=== PATIENT | male | born 1940 | race Caucasian/White ===

== ENCOUNTER 2016-12-15 05:42 | Day surgery (SDC) | payer MEDICARE ==
[2016-12-11 13:23] VITALS: BMI 29.9
[2016-12-15] MEDS ORDERED: SODIUM CHLORIDE 0.9% 1,000 ML in EMPTY BAG 1 BAG IV ONE (06:00)
[2016-12-15] MEDS ORDERED: ASPIRIN 325 MG TAB PO ONE (06:00)
[2016-12-15] MEDS ORDERED: ALPRAZolam 0.25 MG TAB PO PRN (06:00)
[2016-12-15 06:35] VITALS: RESP 16; TEMP 98
[2016-12-15] MEDS ORDERED: VERAPAMIL 2.5 MG/ML 2 ML AMP ONE ×2 (07:11→07:15)
[2016-12-15] MEDS ORDERED: LIDOCAINE 2% INJ 20 MG/ML (20 ML MDV) ONE (07:11)
[2016-12-15] MEDS ORDERED: HEPARIN SODIUM 1,000 UN/ML (10ML VL) ONE (07:11)
[2016-12-15] MEDS ORDERED: diphenhydrAMINE 50 MG/ML 1 ML VIAL ONE (07:11)
[2016-12-15] MEDS ORDERED: fentaNYL (PF) 50 MCG/ML 2 ML AMP ONE (07:11)
[2016-12-15] MEDS ORDERED: diphenhydrAMINE 50 MG/ML 1 ML VIAL IVP ONE (07:35)
[2016-12-15] MEDS ORDERED: fentaNYL (PF) 50 MCG/ML 2 ML AMP IVP ONE (07:35)
[2016-12-15] MEDS ORDERED: LIDOCAINE 2% INJ 20 MG/ML SQ ONE (07:37)
[2016-12-15] MEDS ORDERED: VERAPAMIL SYRINGE (5 MG/10 ML) INTRAARTER ONE (07:38)
[2016-12-15] MEDS ORDERED: HEPARIN SODIUM 1,000 UN/ML (10ML VL) IV ONE (07:45)
[2016-12-15] MEDS ORDERED: IOHEXOL 350 MG/ML 125ML BOTTLE INJ ONE (07:55)
[2016-12-15] MEDS ORDERED: RX INFO: IV CONTRAST WAS GIVEN 1 EACH MISC MISCELLANE PRN (08:10)
[2016-12-15] MEDS ORDERED: PANTOPRAZOLE 40 MG TABLET PO PRN (08:11)
[2016-12-15] MEDS ORDERED: FAMOTIDINE 20 MG TAB PO PRN (08:11)
[2016-12-15] MEDS ORDERED: SODIUM CHLORIDE 0.9% 1,000 ML IV SCH (08:15)
[2016-12-15] MEDS ORDERED: ASPIRIN 81 MG CHEW PO SCH (09:00)
[2016-12-15] MEDS ORDERED: MULTIVITAMINS, THERA 1 EACH TAB PO SCH (09:00)
[2016-12-15] MEDS ORDERED: ISOSORBIDE MONONITRATE ER 30 MG TAB.ER.24H PO SCH (09:00)
[2016-12-15 12:19] VITALS: BP 135/65; PULSE 58
[2016-12-15] MEDS ORDERED: TAMSULOSIN 0.4 MG CAP.ER.24H PO SCH (21:00)
--- NOTE | 2016-12-16 10:24 | CC ---
Mr. Long is a 76-year-old male who presented with symptoms of exertional chest discomfort and dyspnea on exertion. In view of that, recommendations was made regarding cardiac catheterization. The procedure as well as the risks and the complications were discussed with the patient who is in full understanding and agreement. PROCEDURE: The patient was brought to [facility] in the fasting semi-sedated state after receiving fentanyl and Benadryl and achieving moderate conscious sedated state using Xylocaine anesthesia under sterile technique. A 6-Persian sheath was introduced in the right radial artery. Selective right and left coronary angiography performed using 5 Persian 3-1/2 Bend right and left Flash catheter. Multiple view of the coronary arteries including hemiaxial views were obtained. Following that, a 5 Persian tight pigtail catheter was introduced into the left ventricle and a 30-degree VILLASENOR view of the left ventricle was obtained. Following that, catheter and sheath were removed. Hemostasis was obtained with deployment of TR band. There was no immediate complication. The patient was returned to his room in stable condition. Of note, the patient received 4500 units of intravenous heparin as well as intraarterial verapamil. FINDINGS: LEFT MAIN: This is a large size vessel giving rise to an LAD. The left main coronary artery has a 10% plaque distally without any evidence of high grade stenosis. LEFT ANTERIOR DESCENDING ARTERY: This is a large size vessel giving rise to a large first diagonal branch or ramus intermedius. The second diagonal branch is large in caliber after the takeoff of the second diagonal branch, there is a intimal plaque of about 40% with mild calcification. The rest of the vessel has no high grade stenosis. 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 The left circumflex as well as its branches have no evidence of high grade stenosis. RIGHT CORONARY ARTERY: This is a large dominant vessel bifurcating distally to PDA and posterolateral segment and branches. The right coronary artery as well as branches have no evidence of obstructive coronary artery disease. LEFT VENTRICULOGRAM: The left ventriculogram was performed in 30-degree VILLASENOR view and revealed normal left ventricular size and systolic function. Ejection fracture is 60%. HEMODYNAMICS: There was no gradient across the aortic valve. The left ventricular end-diastolic pressure is 18 to 20 mmHg. CONCLUSION: 1. Mild disease in the distal left main as well as the mid left anterior descending artery. 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 3. Normal left ventricular size and systolic function. RECOMMENDATIONS: In view of finding anatomy I would recommend to continue medical therapy with aggressive coronary risk modification has been initiated. Those findings and recommendations were discussed with the patient and his family and in full understanding and agreement. Duration of the procedure is 21 minutes. MTDD
--- NOTE | 2016-12-16 10:29 | MISC ---
December 15, 2016 RASHAD CHONG MD RE: Jayden Mercedes Dear Dr. Chong: I had the opportunity to perform cardiac catheterization on Mr. Long at [facility] on the 15 of December and a full copy of the procedure note will be forwarded to you. 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 Based on those findings, I would continue medical therapy and depending on his progress further recommendations will be made. Please feel free to call me for any questions. Sincerely yours, JAMES WALKER MD [facility]
== END 2016-12-15 13:05 | disposition home or self-care (01) ==
LOC: CATHCVL 05:42
PROVIDERS: ATTEND Internal Medicine Interventional Cardiology
DX: I25.118 Atherosclerotic heart disease of native coronary artery with other forms of angina pectoris (principal); Z79.82 Long term (current) use of aspirin; Z79.899 Other long term (current) drug therapy; Z87.891 Personal history of nicotine dependence
CPT/HCPCS: 93458; 99152; C1894; C1769; J2001; J1200; J3010; J1644; Q9967

== ENCOUNTER → 2017-03-09 | Outpatient (CLI) | payer MEDICARE ==
--- NOTE | 2017-03-09 16:31 | MR ---
EXAMINATION TYPE: MR lumbar spine wo con DATE OF EXAM: 03/09/2017 4:07 PM COMPARISON: NONE HISTORY: LBP x several years, no trauma/surgery Multiplanar, MultiSpin echo imaging of the lumbar spine was performed. L1-L2: Moderate disc desiccation. Circumferential disc bulge. Effacement ventral thecal sac without h erniation, protrusion or central stenosis. Facet joint arthropathy without foraminal encroachment. Ve ntral spondylosis. L2-L3: Moderate disc desiccation. Circumferential disc bulge. Effacement ventral thecal sac without h erniation, protrusion or central stenosis. Facet joint arthropathy without foraminal encroachment. Ve ntral spondylosis. L3-L4: Moderate disc desiccation. Circumferential disc bulge. Effacement ventral thecal sac without h erniation, protrusion or central stenosis. Facet joint arthropathy without foraminal encroachment. Ve ntral spondylosis. L4-L5: Moderate disc desiccation. Circumferential disc bulge. Effacement ventral thecal sac without h erniation, protrusion or central stenosis. Facet joint arthropathy without foraminal encroachment. Ve ntral spondylosis. L5-S1: Moderate disc desiccation. Circumferential disc bulge. Effacement ventral thecal sac without h erniation, protrusion or central stenosis. Facet joint arthropathy without foraminal encroachment. Ve ntral spondylosis. Lumbar segments are intact. No paraspinal masses are identified. Conus medullaris has a normal appe arance. IMPRESSION: 1. Multilevel degenerative disc disease with disc bulging.
== END | disposition home or self-care (01) ==
LOC: RADMRIMAIN 15:14
PROVIDERS: ATTEND Internal Medicine
DX: M51.26 Other intervertebral disc displacement, lumbar region (principal); M51.36 Other intervertebral disc degeneration, lumbar region
CPT/HCPCS: 72148

== ENCOUNTER 2017-04-26 14:35 | Inpatient (IN) | payer MEDICARE ==
[2017-04-26] MEDS ORDERED: ONDANSETRON 4 MG/2 ML VIAL IVP STA (16:00)
--- NOTE | 2017-04-26 16:14 | ED ---
General Adult HPI <Garrett Ruelas - Last Filed: 04/26/17 18:31> - General Source: patient, RN notes reviewed Mode of arrival: ambulatory Limitations: no limitations <Luis Armando Kate - Last Filed: 04/26/17 18:45> - General Chief complaint: Abdominal Pain Stated complaint: GALLBLADDER PROBLEM Time Seen by Provider: 04/26/17 15:55 - History of Present Illness Initial comments: Patient 76-year-old male who presents emergency room today with a chief complaint of abdominal pain off and on over the last 4 days. Patient does admit that he believes it might be his gallbladder. He states that he noticed few days ago. He states Sunday he did not eat anything. He states today he had a sour the pain came back. He describes as a burning type pain in the right upper quadrant. He states he has calmed down at this point currently rates a 4/10. Denies any radiation. States feeling nauseated. Denies any other complaints. Patient denies any recent fever, chills, shortness of breath, chest pain, back pain, vomiting, numbness or tingling, dysuria or hematuria, constipation or diarrhea, headaches or visual changes, or any other complaints. (Luis Armando Kate) - Related Data Home Medications Medication Instructions Recorded Confirmed Aspirin 81 mg PO DAILY 12/11/16 04/26/17 Multivitamins, Thera [Multivitamin 1 tab PO DAILY 12/11/16 04/26/17 (formulary)] Tamsulosin [Flomax] 0.4 mg PO DAILY 12/11/16 04/26/17 Atorvastatin [Lipitor] 20 mg PO DAILY 04/26/17 04/26/17 Fluticasone Nasal [place] [Flonase 2 spr EA NOSTRIL DAILY 04/26/17 04/26/17 Nasal [place]] Allergies Allergy/AdvReac Type Severity Reaction Status Date / Time No Known Allergies Allergy Verified 04/26/17 16:05 Review of Systems ROS Other: All systems not noted in ROS Statement are negative. <Garrett Ruelas - Last Filed: 04/26/17 18:31> ROS Other: All systems not noted in ROS Statement are negative. <Luis Armando Kate - Last Filed: 04/26/17 18:45> ROS Statement: Those systems with pertinent positive or pertinent negative responses have been documented in the HPI. Past Medical History Past Medical History: GERD/Reflux, Prostate Disorder Additional Past Medical History / Comment(s): ,hiatal hernia,enlarged prostate, kidney stone History of Any Multi-Drug Resistant Organisms: None Reported Past Surgical History: Hernia Repair, Tonsillectomy Additional Past Surgical History / Comment(s): vasectomy, incised growth in throat Past Anesthesia/Blood Transfusion Reactions: No Reported Reaction Additional Past Anesthesia/Blood Transfusion Reaction / Comment(s): no hx blood transfusion Past Psychological History: No Psychological Hx Reported Smoking Status: Former smoker Past Alcohol Use History: None Reported Past Drug Use History: None Reported - Past Family History Mother Family Medical History: No Reported History Father Family Medical History: No Reported History <Luis Armando Kate - Last Filed: 04/26/17 18:45> General Exam <Garrett Ruelas - Last Filed: 04/26/17 18:31> Limitations: no limitations <Luis Armando Kate - Last Filed: 04/26/17 18:45> - General Exam Comments Initial Comments: General: The patient is awake and alert, in no distress, and does not appear acutely ill. Eye: Pupils are equal, round and reactive to light, extra-ocular movements are intact. No nystagmus. There is normal conjunctiva bilaterally. No signs of icterus. Ears, nose, mouth and throat: There are moist mucous membranes and no oral lesions. Neck: The neck is supple, there is no tenderness or JVD. Cardiovascular: There is a regular rate and rhythm. No murmur, rub or gallop is appreciated. Respiratory: Lungs are clear to auscultation, respirations are non-labored, breath sounds are equal. No wheezes, stridor, rales, or rhonchi. Gastrointestinal: Soft, non-distended, non-tender abdomen without masses or organomegaly noted. There is no rebound or guarding present. No CVA tenderness. Bowel sounds are unremarkable. Musculoskeletal: Normal ROM, no tenderness. Strength 5/5. Sensation intact. Pulses equal bilaterally 2+. Neurological: A&O x 3. CN II-XII intact, There are no obvious motor or sensory deficits. Coordination appears grossly intact. Speech is normal. Skin: Skin is warm and dry and no rashes or lesions are noted. Psychiatric: Cooperative, appropriate mood & affect, normal judgment. (Luis Armando Kate) Course <Garrett Ruelas - Last Filed: 04/26/17 18:31> <Luis Armando Kate - Last Filed: 04/26/17 18:45> Vital Signs 04/26/17 04/26/17 04/26/17 14:41 17:39 18:31 Temperature 98.2 F 97.8 F 98.1 F Pulse Rate 89 80 77 Respiratory 18 18 18 Rate Blood Pressure 146/70 167/81 163/86 O2 Sat by Pulse 97 97 97 Oximetry - Reevaluation(s) Reevaluation #1: 04/26/17 18:31 PA supervision: I did personally do a [id number] evaluation the patient did discuss findings with him. He does demonstrate right upper quadrant tenderness palpation. I did discuss the case with Dr. Johnson And with Dr. Chaidez (Garrett Ruelas) EKG Findings - EKG Comments: EKG Findings:: [place] [address]: Shows sinus rhythm at 80 beats per minute with PVC's. [place] interval 180. QRS 114. QT/QTc 402/463. No acute ST changes. <Luis Armando Kate - Last Filed: 04/26/17 18:45> Medical Decision Making - Lab Data Result diagrams: 04/26/17 16:13 04/26/17 16:13 <Garrett Ruelas - Last Filed: 04/26/17 18:31> - Lab Data Result diagrams: 04/26/17 16:13 04/26/17 16:13 <Luis Armando Kate - Last Filed: 04/26/17 18:45> - Medical Decision Making Patient's ultrasound does show evidence for cholelithiasis. There is possibility of gallstone stuck in the neck of the gallbladder. Patient's labs been reviewed unremarkable. Patient does admit to intermittent pain worse after eating. Case discussed and seen by attending physician Dr. Ruelas. Patient will be admitted to internal medicine consult to general surgeon. ( Luis Armando Kate) - Lab Data Lab Results 04/26/17 04/26/17 04/26/17 Range/Units 16:13 16:13 16:13 WBC 7.9 (3.8-10.6) k/uL RBC 4.57 (4.30-5.90) m/uL Hgb 13.7 (13.0-17.5) gm/dL Hct 42.3 (39.0-53.0) % MCV 92.5 (80.0-100.0) fL MCH 30.0 (25.0-35.0) pg MCHC 32.5 (31.0-37.0) g/dL RDW 14.8 (11.5-15.5) % Plt Count 192 (150-450) k/uL Neutrophils % 73 % Lymphocytes % 16 % Monocytes % 8 % Eosinophils % 2 % Basophils % 0 % Neutrophils # 5.8 (1.3-7.7) k/uL Lymphocytes # 1.3 (1.0-4.8) k/uL Monocytes # 0.6 (0-1.0) k/uL Eosinophils # 0.1 (0-0.7) k/uL Basophils # 0.0 (0-0.2) k/uL Sodium 139 (137-145) mmol/L Potassium 4.1 (3.5-5.1) mmol/L Chloride 106 (98-107) mmol/L Carbon Dioxide 25 (22-30) mmol/L Anion Gap 8 mmol/L BUN 23 H (9-20) mg/dL Creatinine 1.00 (0.66-1.25) mg/dL Est GFR (MDRD) Af Amer >60 (>60 ml/min/1.73 sqM) Est GFR (MDRD) Non-Af >60 (>60 ml/min/1.73 sqM) Glucose 101 H (74-99) mg/dL Calcium 9.3 (8.4-10.2) mg/dL Total Bilirubin 0.5 (0.2-1.3) mg/dL AST 33 (17-59) U/L ALT 41 (21-72) U/L Alkaline Phosphatase 62 (38-126) U/L Total Creatine Kinase 123 (55-170) U/L CK-MB (CK-2) 1.8 (0.0-2.4) ng/mL CK-MB (CK-2) Rel Index 1.5 Troponin I <0.012 (0.000-0.034) ng/mL Total Protein 6.4 (6.3-8.2) g/dL Albumin 4.0 (3.5-5.0) g/dL Amylase <30 L (30-110) U/L Lipase 26 (23-300) U/L Urine Color Urine Appearance (Clear) Urine pH (5.0-8.0) Ur Specific [place] (1.001-1.035) Urine Protein (Negative) Urine Glucose (UA) (Negative) Urine Ketones (Negative) Urine Blood (Negative) Urine Nitrite (Negative) Urine Bilirubin (Negative) Urine Urobilinogen (<2.0) mg/dL Ur Leukocyte Esterase (Negative) Urine RBC (0-5) /hpf Urine WBC (0-5) /hpf Urine Bacteria (None) /hpf Hyaline Casts (0-2) /lpf Urine Mucus (None) /hpf 04/26/17 Range/Units 17:35 WBC (3.8-10.6) k/uL RBC (4.30-5.90) m/uL Hgb (13.0-17.5) gm/dL Hct (39.0-53.0) % MCV (80.0-100.0) fL MCH (25.0-35.0) pg MCHC (31.0-37.0) g/dL RDW (11.5-15.5) % Plt Count (150-450) k/uL Neutrophils % % Lymphocytes % % Monocytes % % Eosinophils % % Basophils % % Neutrophils # (1.3-7.7) k/uL Lymphocytes # (1.0-4.8) k/uL Monocytes # (0-1.0) k/uL Eosinophils # (0-0.7) k/uL Basophils # (0-0.2) k/uL Sodium (137-145) mmol/L Potassium (3.5-5.1) mmol/L Chloride (98-107) mmol/L Carbon Dioxide (22-30) mmol/L Anion Gap mmol/L BUN (9-20) mg/dL Creatinine (0.66-1.25) mg/dL Est GFR (MDRD) Af Amer (>60 ml/min/1.73 sqM) Est GFR (MDRD) Non-Af (>60 ml/min/1.73 sqM) Glucose (74-99) mg/dL Calcium (8.4-10.2) mg/dL Total Bilirubin (0.2-1.3) mg/dL AST (17-59) U/L ALT (21-72) U/L Alkaline Phosphatase (38-126) U/L Total Creatine Kinase (55-170) U/L CK-MB (CK-2) (0.0-2.4) ng/mL CK-MB (CK-2) Rel Index Troponin I (0.000-0.034) ng/mL Total Protein (6.3-8.2) g/dL Albumin (3.5-5.0) g/dL Amylase (30-110) U/L Lipase (23-300) U/L Urine Color Yellow Urine Appearance Clear (Clear) Urine pH 6.0 (5.0-8.0) Ur Specific [place] 1.013 (1.001-1.035) Urine Protein Negative (Negative) Urine Glucose (UA) Negative (Negative) Urine Ketones Negative (Negative) Urine Blood Moderate H (Negative) Urine Nitrite Negative (Negative) Urine Bilirubin Negative (Negative) Urine Urobilinogen <2.0 (<2.0) mg/dL Ur Leukocyte Esterase Small H (Negative) Urine RBC 57 H (0-5) /hpf Urine WBC 5 (0-5) /hpf Urine Bacteria Rare H (None) /hpf Hyaline Casts 1 (0-2) /lpf Urine Mucus Occasional H (None) /hpf Disposition <Garrett Ruelas - Last Filed: 04/26/17 18:31> Time of Disposition: 18:01 <Luis Armando Kate - Last Filed: 04/26/17 18:45> Clinical Impression: Cholecystitis Disposition: ADMITTED IP TO THIS [facility] Condition: Good
[2017-04-26 16:30] LABS: Basophils % (A) 0 %; CH 30.3; CHCM 32.9; Eosinophils # (A) 0.1 k/uL (0-0.7); Eosinophils % (A) 2 %; HCT 42.3 % (39.0-53.0); HDW 2.51; HGB 13.7 gm/dL (13.0-17.5); Luc # (Auto) 0.09; Luc % (Auto) 1; Lymphocytes # (A) 1.3 k/uL (1.0-4.8); Lymphocytes % (A) 16 %; MCHC 32.5 g/dL (31.0-37.0); MCV 92.5 fL (80.0-100.0); Mean Platelet Volume 8.8; Monocytes # (A) 0.6 k/uL (0-1.0); Monocytes % (A) 8 %; Neutrophils # (A) 5.8 k/uL (1.3-7.7); Neutrophils % (A) 73 %; RBC 4.57 m/uL (4.30-5.90); RDW 14.8 % (11.5-15.5); WBC 7.9 k/uL (3.8-10.6); WBC (Perox) 8.08
[2017-04-26 16:43] LABS: ALT 41 U/L (21-72); AST 33 U/L (17-59); Alkaline Phosphatase 62 U/L (38-126); Amylase <30 U/L (30-110); Anion Gap 8 mmol/L; Blood Urea Nitrogen 23 mg/dL (9-20); Calcium 9.3 mg/dL (8.4-10.2); Carbon Dioxide 25 mmol/L (22-30); Chloride 106 mmol/L (98-107); Glucose 101 mg/dL (74-99); Non-African American GFR(MDRD) >60 (>60 ml/min/1.73 sqM); Potassium 4.1 mmol/L (3.5-5.1); Sodium 139 mmol/L (137-145); Total Bilirubin 0.5 mg/dL (0.2-1.3); Total Protein 6.4 g/dL (6.3-8.2)
[2017-04-26 16:47] LABS: Creatine Kinase 123 U/L (55-170)
--- NOTE | 2017-04-26 16:58 | US ---
EXAMINATION TYPE: US abdomen limited DATE OF EXAM: 04/26/2017 COMPARISON: NONE CLINICAL HISTORY: RUQ Pain. Nausea. Difficult and limited exam due to overlying bowel gas EXAM MEASUREMENTS: Liver Length: 14.8 cm Gallbladder Wall: 0.2 cm CBD: 0.6 cm Right Kidney: 12.3 x 6.6 x 6.1 cm Pancreas: Obscured by bowel gas Liver: Limited visualization due to overlying bowel gas. Visualized portions appear wnl. Gallbladder: Shadowing echogenic foci visualized within neck measuring 0.6 cm Evidence for sonographic Peterson's sign:Yes CBD: wnl as visualized. Distal portion obscured by bowel gas Right Kidney: Cyst visualized upper pole measuring 3.1 x 2.8 x 3.2 cm. Mild prominence to the renal pelvis IMPRESSION: 1. Cholelithiasis. Clinical correlation is recommended for cholecystitis. There is a gallstone at the neck of the gallbladder.
[2017-04-26 17:00] LABS: Creatine Kinase MB 1.8 ng/mL (0.0-2.4); Troponin I <0.012 ng/mL (0.000-0.034)
[2017-04-26 17:44] LABS: Appearance,Urine Clear (Clear); Bacteria,Urine Rare /hpf; Bilirubin,Urine Negative (Negative); Glucose,Urine (UA) Negative (Negative); Ketones,Urine Negative (Negative); Leukocyte Esterase,Urine Small (Negative); Mucus,Urine Occasional /hpf; Nitrite,Urine Negative (Negative); Particle Count 2285; Protein,Urine Negative (Negative); RBC,Urine 57 /hpf (0-5); Specific Gravity,Urine 1.013 (1.001-1.035); UA Billing (MACRO vs. MICRO) MICRO; Urobilinogen,Urine <2.0 mg/dL (<2.0); WBC,Urine 5 /hpf (0-5)
[2017-04-26] MEDS ORDERED: PIPERACILLIN-TAZOBACTAM 3.375 GM in DEXTROSE/WATER 1 50ML.BAG IVPB STA (18:05)
[2017-04-26] MEDS ORDERED: NALOXONE 0.4 MG/ML 1 ML VIAL IV PRN (18:06)
[2017-04-26] MEDS ORDERED: HYDROmorphone 2 MG/ML 1 ML SYRINGE IVP PRN (18:06)
[2017-04-26] MEDS ORDERED: ONDANSETRON 4 MG/2 ML VIAL IVP PRN (18:06)
[2017-04-27] MEDS: PIPERACILLIN-TAZOBACTAM 3.375 GM in DEXTROSE/WATER 1 50ML.BAG IVPB SCH ×3 (01:50→18:03)
[2017-04-27] MEDS: SODIUM CHLORIDE 0.9% 1,000 ML IV SCH ×3 (01:51→23:06)
[2017-04-27 07:58] LABS: Basophils % (A) 1 %; CH 30.1; CHCM 32.3; Eosinophils # (A) 0.1 k/uL (0-0.7); Eosinophils % (A) 2 %; HDW 2.51; HGB 13.4 gm/dL (13.0-17.5); Luc # (Auto) 0.09; Luc % (Auto) 2; Lymphocytes # (A) 1.2 k/uL (1.0-4.8); Lymphocytes % (A) 24 %; MCV 93.9 fL (80.0-100.0); Mean Platelet Volume 8.9; Monocytes # (A) 0.5 k/uL (0-1.0); Monocytes % (A) 10 %; Neutrophils # (A) 3.1 k/uL (1.3-7.7); Neutrophils % (A) 62 %; RBC 4.47 m/uL (4.30-5.90); RDW 14.8 % (11.5-15.5); WBC 5.1 k/uL (3.8-10.6)
[2017-04-27] MEDS: TAMSULOSIN 0.4 MG CAP.ER.24H PO SCH (08:11)
[2017-04-27] MEDS: ATORVASTATIN 20 MG TAB PO SCH (08:11)
[2017-04-27 08:12] LABS: ALT 41 U/L (21-72); AST 28 U/L (17-59); Alkaline Phosphatase 57 U/L (38-126); Anion Gap 6 mmol/L; Blood Urea Nitrogen 19 mg/dL (9-20); Calcium 8.9 mg/dL (8.4-10.2); Carbon Dioxide 26 mmol/L (22-30); Chloride 107 mmol/L (98-107); Glucose 99 mg/dL (74-99); Non-African American GFR(MDRD) >60 (>60 ml/min/1.73 sqM); Potassium 4.1 mmol/L (3.5-5.1); Sodium 139 mmol/L (137-145); Total Bilirubin 0.8 mg/dL (0.2-1.3); Total Protein 5.8 g/dL (6.3-8.2)
--- NOTE | 2017-04-27 08:42 | P.GSCN ---
History of Present Illness Consult date: 04/27/17 Reason for Consult: Acute cholecystitis History of present illness: This is a 76-year-old gentleman that presents complaining of abdominal pain specifically in the right upper quadrant. He states that he has had issues with this pain over the last 4 days. The pain suddenly came and had resolved approximately 4 days ago. He states that the pain returned a day later. He states he notices it comes after meals. He states he has been having episodes like this over the past year. He states he has been told his gallbladder has been an issue. He complains of some nausea but denies vomiting. He denies any change in bowel function. He states he occasionally has had chills over the last few days but denies any fevers, shortness of breath, or chest pain. He states that he has had a recent cardiac catheterization with no significant findings in the last few months. He has no additional complaints at this time. Review of Systems All systems: negative Past Medical History Past Medical History: GERD/Reflux, Hyperlipidemia, Osteoarthritis (OA), Prostate Disorder Additional Past Medical History / Comment(s): ,hiatal hernia,enlarged prostate, kidney stone, murmur,lower bridges, "bulging disc lower back" History of Any Multi-Drug Resistant Organisms: None Reported Past Surgical History: Heart Catheterization, Hernia Repair, Tonsillectomy Additional Past Surgical History / Comment(s): vasectomy, incised growth in throat, katia cataracts Past Anesthesia/Blood Transfusion Reactions: No Reported Reaction Additional Past Anesthesia/Blood Transfusion Reaction / Comm: no hx blood transfusion Smoking Status: Former smoker - Past Family History Mother Family Medical History: No Reported History Father Family Medical History: No Reported History Medications and Allergies Home Medications Medication Instructions Recorded Confirmed Type Aspirin 81 mg PO DAILY 12/11/16 04/26/17 History Multivitamins, Thera [Multivitamin 1 tab PO DAILY 12/11/16 04/26/17 History (formulary)] Tamsulosin [Flomax] 0.4 mg PO DAILY 12/11/16 04/26/17 History Atorvastatin [Lipitor] 20 mg PO DAILY 04/26/17 04/26/17 History Fluticasone Nasal [place] [Flonase 2 spr EA NOSTRIL DAILY 04/26/17 04/26/17 History Nasal [place]] Allergies Allergy/AdvReac Type Severity Reaction Status Date / Time No Known Allergies Allergy Verified 04/26/17 16:05 Surgical - Exam Osteopathic Statement: *. No significant issues noted on an osteopathic structural exam other than those noted in the History and Physical/Consult. Vital Signs Temp Pulse Resp BP Pulse Ox 98.2 F 89 18 146/70 97 04/26/17 14:41 04/26/17 14:41 04/26/17 14:41 04/26/17 14:41 04/26/17 14:41 - General well developed, well nourished, no distress - Eyes PERRL, normal ocular movement - ENT normal pinna, normal nares, normal mucosa - Neck no masses, trachea midline, no lymphadectomy - Respiratory normal expansion, normal respiratory effort - Cardiovascular Rhythm: regular Heart Sounds: normal: S1, S2 - Abdomen Soft, mild tenderness in right upper quadrant, nondistended, no rebound, no guarding - Integumentary no rash, no growths, no abnormal pigmentation - Neurologic normal coordination, normal sensation - Musculoskeletal normal gait - Psychiatric oriented to time, oriented to person, oriented to place Results - Labs 04/27/17 07:10 04/27/17 07:10 Abnormal Lab Results - Last 24 Hours (Table) 04/26/17 04/26/17 04/27/17 Range/Units 16:13 17:35 07:10 BUN 23 H (9-20) mg/dL Glucose 101 H (74-99) mg/dL Total Protein 5.8 L (6.3-8.2) g/dL Amylase <30 L (30-110) U/L Urine Blood Moderate H (Negative) Ur Leukocyte Esterase Small H (Negative) Urine RBC 57 H (0-5) /hpf Urine Bacteria Rare H (None) /hpf Urine Mucus Occasional H (None) /hpf Diabetes panel 04/26/17 04/27/17 Range/Units 16:13 07:10 Sodium 139 139 (137-145) mmol/L Potassium 4.1 4.1 (3.5-5.1) mmol/L Chloride 106 107 (98-107) mmol/L Carbon Dioxide 25 26 (22-30) mmol/L BUN 23 H 19 (9-20) mg/dL Creatinine 1.00 1.00 (0.66-1.25) mg/dL Glucose 101 H 99 (74-99) mg/dL Calcium 9.3 8.9 (8.4-10.2) mg/dL AST 33 28 (17-59) U/L ALT 41 41 (21-72) U/L Alkaline Phosphatase 62 57 (38-126) U/L Total Protein 6.4 5.8 L (6.3-8.2) g/dL Albumin 4.0 3.5 (3.5-5.0) g/dL Calcium panel 04/26/17 04/27/17 Range/Units 16:13 07:10 Calcium 9.3 8.9 (8.4-10.2) mg/dL Albumin 4.0 3.5 (3.5-5.0) g/dL Pituitary panel 04/26/17 04/27/17 Range/Units 16:13 07:10 Sodium 139 139 (137-145) mmol/L Potassium 4.1 4.1 (3.5-5.1) mmol/L Chloride 106 107 (98-107) mmol/L Carbon Dioxide 25 26 (22-30) mmol/L BUN 23 H 19 (9-20) mg/dL Creatinine 1.00 1.00 (0.66-1.25) mg/dL Glucose 101 H 99 (74-99) mg/dL Calcium 9.3 8.9 (8.4-10.2) mg/dL Adrenal panel 04/26/17 04/27/17 Range/Units 16:13 07:10 Sodium 139 139 (137-145) mmol/L Potassium 4.1 4.1 (3.5-5.1) mmol/L Chloride 106 107 (98-107) mmol/L Carbon Dioxide 25 26 (22-30) mmol/L BUN 23 H 19 (9-20) mg/dL Creatinine 1.00 1.00 (0.66-1.25) mg/dL Glucose 101 H 99 (74-99) mg/dL Calcium 9.3 8.9 (8.4-10.2) mg/dL Total Bilirubin 0.5 0.8 (0.2-1.3) mg/dL AST 33 28 (17-59) U/L ALT 41 41 (21-72) U/L Alkaline Phosphatase 62 57 (38-126) U/L Total Protein 6.4 5.8 L (6.3-8.2) g/dL Albumin 4.0 3.5 (3.5-5.0) g/dL - Imaging US - abdomen: report reviewed (Reviewed with cholelithiasis specifically at neck of the gallbladder) Assessment and Plan Plan: 76-year-old male with acute cholecystitis Keep nothing by mouth Plan for laparoscopic cholecystectomy Continue antibiotics Heparin for DVT prophylaxis Further recommendations to follow Thank you for this consultation, I look forward in providing in this patient's care.
[2017-04-27] MEDS: HEPARIN SODIUM,PORCINE 5,000 UNIT/ML 1 ML VIAL SQ SCH ×2 (10:16→14:13)
[2017-04-27] MEDS ORDERED: IV FLUID CONTINUATION 575 ML IV ONE (13:59)
--- NOTE | 2017-04-27 14:25 | P.HPIM ---
History of Present Illness H&P Date: 04/27/17 Chief Complaint: Abdominal pain This is a 76-year-old patient of Dr. Morfin with a past medical history of GERD, hyperlipidemia, OA, enlarged prostate. Patient presents with complains of abdominal pain specifically in the right upper quadrant. He states that he has had issues with this pain over the last 4 days. The pain suddenly came and had resolved approximately 4 days ago. He states that the pain returned a day later. He states he notices it comes after meals. He states he has been having episodes like this over the past year. He states he has been told his gallbladder has been an issue in march but he ignored it. He complains of some nausea but denies vomiting. He denies any change in bowel function. He states he occasionally has had chills over the last few days but denies any fevers, shortness of breath, or chest pain. He states that he has had a recent cardiac catheterization with no significant findings in the last few months. He has no additional complaints at this time. Labs done in ED suggests no leukocytosis, with normal LFTs. Urinalysis suggest hematuria with 47 RBCs but no protein or WBC. Patient does endorses history of renal stones. Abdominal ultrasounds was positive for cholecystitis along with cholelithiasis with gallstone in the neck of gallbladder. No nephrolithiasis seen. Review of Systems Constitutional: Denies chills, Denies fever, Denies lethargy, Denies malaise, Denies poor appetite, Denies weakness, Denies weight loss Eyes: denies decreased vision, denies diplopia, denies discharge, denies pain Ears: deny: decreased hearing Ears, nose, mouth and throat: Denies dental pain, Denies headache, Denies nasal discharge, Denies nose pain Cardiovascular: Denies chest pain, Denies decreased exercise tolerance, Denies edema, Denies high blood pressure, Denies irregular heart beat, Denies palpitations, Denies paroxysmal nocturnal dyspnea, Denies rapid heart beat, Denies shortness of breath Respiratory: Denies congestion, Denies cough, Denies cough with sputum, Denies dyspnea, Denies home oxygen, Denies wheezing Gastrointestinal: Endorses abdominal pain, Denies change in bowel habits, Denies coffee ground emesis, Denies early satiety, Denies excessive gas, Denies heartburn, Denies hematemesis, Denies hematochezia, Denies loss of appetite, endorses nausea, Denies vomiting Genitourinary: Denies dysuria, Denies flank pain, Denies kidney stones, Denies menorrhagia, Denies urgency, Denies urinary frequency Musculoskeletal: Denies gait dysfunction, Denies limitation of motion, Denies morning stiffness, Denies muscle cramps Integumentary: Denies rash, Denies wounds, Denies brittle nails, Denies change in hair/nails, Denies darkening of skin Neurological: Denies balance difficulties, Denies change in speech, Denies double vision, Denies gait dysfunction, Denies loss of vision, Denies motor disturbance, Denies numbness, Denies paralysis, Denies paresthesias, Denies seizures Psychiatric: Denies anxiety, Denies depression Endocrine: Denies excessive sweating, Denies excessive thirst, Denies high blood sugars, Denies palpitations Hematologic/Lymphatic: Denies easy bruising, Denies lymphadenopathy Past Medical History Past Medical History: GERD/Reflux, Hyperlipidemia, Osteoarthritis (OA), Prostate Disorder Additional Past Medical History / Comment(s): ,hiatal hernia,enlarged prostate, kidney stone, murmur,lower bridges, "bulging disc lower back" History of Any Multi-Drug Resistant Organisms: None Reported Past Surgical History: Heart Catheterization, Hernia Repair, Tonsillectomy Additional Past Surgical History / Comment(s): vasectomy, incised growth in throat, katia cataracts Past Anesthesia/Blood Transfusion Reactions: No Reported Reaction Additional Past Anesthesia/Blood Transfusion Reaction / Comment(s): no hx blood transfusion Smoking Status: Former smoker - Past Family History Mother Family Medical History: No Reported History Additional Family Medical History / Comment(s): No significant medical history in mom and dad, mother of old age. Father Family Medical History: No Reported History Medications and Allergies Home Medications Medication Instructions Recorded Confirmed Type Aspirin 81 mg PO DAILY 12/11/16 04/26/17 History Multivitamins, Thera [Multivitamin 1 tab PO DAILY 12/11/16 04/26/17 History (formulary)] Tamsulosin [Flomax] 0.4 mg PO DAILY 12/11/16 04/26/17 History Atorvastatin [Lipitor] 20 mg PO DAILY 04/26/17 04/26/17 History Fluticasone Nasal [place] [Flonase 2 spr EA NOSTRIL DAILY 04/26/17 04/26/17 History Nasal [place]] Allergies Allergy/AdvReac Type Severity Reaction Status Date / Time No Known Allergies Allergy Verified 04/27/17 14:07 Physical Exam Vitals: Vital Signs Temp Pulse Pulse Resp BP BP BP 04/27/17 07:00 97.8 F 79 16 154/74 04/27/17 00:00 16 04/26/17 19:36 98.7 F 83 16 170/80 170/84 04/26/17 18:31 98.1 F 77 18 163/86 04/26/17 17:39 97.8 F 80 18 167/81 04/26/17 14:41 98.2 F 89 18 146/70 Pulse Ox 04/27/17 07:00 95 04/27/17 00:00 04/26/17 19:36 96 04/26/17 18:31 97 04/26/17 17:39 97 04/26/17 14:41 97 Intake and Output 04/26/17 04/27/17 04/27/17 22:59 06:59 14:59 Intake Total 590 590 Balance 590 590 Intake: Oral 590 590 Other: Voiding Method Toilet Toilet # Voids 2 2 - Constitutional General appearance: cooperative, no acute distress, obese - EENT Eyes: anicteric sclerae, PERRLA, normal appearance ENT: hearing grossly normal - Neck Neck: no lymphadenopathy, normal ROM, no other, no rigidity, no stridor, no thyromegaly - Respiratory Respiratory: bilateral: CTA, negative: diminished, dullness, rales, rhonchi - Cardiovascular Rhythm: regular Heart sounds: normal: S1, S2 Abnormal Heart Sounds: no systolic murmur, no diastolic murmur, no rub, no S3 Gallop, no S4 Gallop, no click, no other - Gastrointestinal General gastrointestinal: Mild tenderness right upper quadrant on deep palpation , negative Peterson sign. normal bowel sounds, soft - Integumentary Integumentary: no rash - Neurologic Neurologic: CNII-XII intact - Musculoskeletal Musculoskeletal: gait normal, strength equal bilaterally - Psychiatric Psychiatric: A&O x's 3, appropriate affect Results CBC & Chem 7: 04/27/17 07:10 04/27/17 07:10 Labs: Abnormal Lab Results - Last 24 Hours (Table) 04/26/17 04/26/17 04/27/17 Range/Units 16:13 17:35 07:10 BUN 23 H (9-20) mg/dL Glucose 101 H (74-99) mg/dL Total Protein 5.8 L (6.3-8.2) g/dL Amylase <30 L (30-110) U/L Urine Blood Moderate H (Negative) Ur Leukocyte Esterase Small H (Negative) Urine RBC 57 H (0-5) /hpf Urine Bacteria Rare H (None) /hpf Urine Mucus Occasional H (None) /hpf Thrombosis Risk Factor Assmnt - DVT/VTE Prophylaxis DVT/VTE Prophylaxis: Mechanical Prophylaxis ordered - Choose All That Apply Any of the Below Risk Factors Present?: Yes Each Factor Represents 1 point: Obesity (BMI >25) Other Risk Factors: Yes Each Risk Factor Represents 3 Points: Age 75 years or older Other congenital or acquired thrombophilia - If yes, enter type in comment: No Thrombosis Risk Factor Assessment Total Risk Factor Score: 4 Thrombosis Risk Factor Assessment Level: Moderate Risk Assessment and Plan Plan: #1 acute cholecystitis with cholelithiasis- nothing by mouth after midnight, continue Zosyn, no fever since last night, Dr. Chaidez to perform laparoscopic cholecystectomy, continue fluids at 75 mL/h, CMP daily, pain control with Dilaudid 1 mg every 3 hours #2 hematuria likely secondary to nephrolithiasis, other differential include bladder cancer. Patient need close follow-up with PCP regarding hematuria. Patient does have significant history of nephrolithiasis which could be contributing to the hematuria but no renal stone or ureteric stones seen on the ultrasound abdomen. Urine cytology sent #3 GERD- continue Protonix 40 mg daily #4 hyperlipidemia continue Lipitor 20 mg daily #5 osteoarthritis - continue Dilaudid 1 mg every 3 hours for pain control #6 BPH continue tamsulosin 0.4 mg by mouth daily #7 DVT prophylaxis- Lovenox 40 subcu daily #8 CODE STATUS full code #9 disposition- likely tomorrow post surgery
[2017-04-27] MEDS ORDERED: ONDANSETRON 4 MG/2 ML VIAL IVP ONE (14:38)
[2017-04-27] MEDS: PANTOPRAZOLE 40 MG/10 ML VIAL IVP SCH (19:33)
[2017-04-28] MEDS: PIPERACILLIN-TAZOBACTAM 3.375 GM in DEXTROSE/WATER 1 50ML.BAG IVPB SCH ×3 (02:23→19:50)
[2017-04-28] MEDS: PANTOPRAZOLE 40 MG/10 ML VIAL IVP SCH (08:36)
[2017-04-28] MEDS: ENOXAPARIN 40 MG/0.4 ML SYRINGE SQ SCH (08:37)
[2017-04-28] MEDS ORDERED: PANTOPRAZOLE 40 MG/10 ML VIAL IVP SCH (09:00)
[2017-04-28] MEDS ORDERED: fentaNYL (PF) 50 MCG/ML 2 ML AMP ONE (09:33)
[2017-04-28] MEDS ORDERED: ROCURONIUM BROMIDE 10 MG/ML 10 ML VIAL IV ONE (09:33)
[2017-04-28] MEDS ORDERED: PROPOFOL 10 MG/ML 20 ML VIAL IV ONE (09:33)
[2017-04-28] MEDS ORDERED: GLYCOPYRROLATE 0.2 MG/ML 2 ML VIAL ONE (09:33)
[2017-04-28] MEDS ORDERED: SUCCINYLCHOLINE CHLORIDE VIAL 200 MG/10 ML VIAL IV ONE (09:33)
[2017-04-28] MEDS ORDERED: IV FLUID CONTINUATION 250 ML IV ONE (09:33)
[2017-04-28] MEDS ORDERED: MIDAZOLAM 2 MG/2 ML VIAL ONE (09:33)
[2017-04-28] MEDS ORDERED: NEOSTIGMINE 1 MG/ML 10 ML VIAL ONE (09:33)
[2017-04-28] MEDS ORDERED: ePHEDrine SULFATE/0.9% NACL/PF 50 MG/5 ML SYRINGE IV ONE (09:33)
[2017-04-28] MEDS ORDERED: HYDROmorphone (PF) 1 MG/ML ONE (09:33)
[2017-04-28] MEDS ORDERED: LIDOCAINE 1% INJ 10MG/ML (20 ML MDV) ONE (09:33)
[2017-04-28] MEDS ORDERED: DEXAMETHASONE SOD PHOS (MDV) 100 MG/10 ML VIAL ONE (09:33)
[2017-04-28] MEDS ORDERED: ONDANSETRON 4 MG/2 ML VIAL ONE (09:33)
[2017-04-28] MEDS ORDERED: LACTATED RINGERS 1,000 ML IV ONE ×3 (10:05→11:14)
[2017-04-28] MEDS ORDERED: BUPIVACAINE (PF) 0.5% 30 ML VIAL SQ ONE ×2 (10:08→10:38)
[2017-04-28] MEDS ORDERED: HYDROmorphone 2 MG/ML 1 ML SYRINGE IVP ONE ×3 (11:00→11:15)
[2017-04-28] MEDS ORDERED: HYDROmorphone 1 MG/ML 1 ML SYRINGE IVP ONE (11:00)
--- NOTE | 2017-04-28 11:00 | P.OP ---
Date of Procedure: 04/28/17 Preoperative Diagnosis: Acute cholecystitis Postoperative Diagnosis: Acute cholecystitis Procedure(s) Performed: Laparoscopic cholecystectomy Anesthesia: SAMMY Surgeon: Ton Chaidez Estimated Blood Loss (ml): 5 Pathology: other (Gallbladder and contents) Condition: stable Disposition: floor Indications for Procedure: 76-year-old male presented to the emergency department complaining of right upper quadrant pain. He stated that he had this pain for the entire week and at first mildly improved and then worsened. He states that he has had multiple right upper quadrant pain attacks in the past. He has been told that he has gallbladder issues in the past. On workup during the emergency department visit he was found to have a gallstone in the gallbladder neck worrisome for acute cholecystitis. Left upper cholecystectomy was offered to the patient. The patient was extremely risks, benefits and alternatives to the procedure provided consent prior to attending the operating suite. Operative Findings: Dense adhesions to the gallbladder with omentum and surrounding tissue Edematous gallbladder Thickened gallbladder Description of Procedure: The patient was brought into the operating suite and placed in supine position on the operating table. The patient then underwent sedation by anesthesia. The patient underwent general endotracheal intubation. The patient was then prepped and draped in regular sterile fashion. A infra umbilical incision was made dissection was carried to the fascia the fascia was incised and a 10 mm port was placed. Pneumoperitoneum was then achieved. 3 additional 5 mm ports were placed. 2 in the right upper quadrant and one at the subxiphoid position. The gallbladder was then grasped and it was noted that dense omentum was adhered to the gallbladder. Electrocautery and blunt dissection was used to remove the adhesions. The gallbladder was then retracted. Dissection was carried out to skeletonize the cystic duct and cystic artery. Once skeletonize 2 clips were placed proximally on the cystic duct and one distally and the cystic duct was ligated. 2 clips were placed proximally on the cystic artery well was placed distally and the cystic artery was ligated. Electrocautery was then used to dissect the gallbladder from the gallbladder fossa on the liver bed. Once the gallbladder was completely removed from the liver bed it was placed in a Endo Catch bag and removed from the infra umbilical incision site. Copious muss irrigation was then used in the right upper quadrant. Hemostasis was noted to be maintained. Pneumoperitoneum was released. All trochars removed from the abdomen. The infra umbilical incision site fascial layer was closed with multiple [id number] 0 Vicryl sutures. All skin incisions were then closed with 4-0 Vicryl subcuticular suture. The patient was awakened in the operating suite and taken to postanesthesia care unit in stable condition.
[2017-04-28] MEDS ORDERED: NALOXONE 0.4 MG/ML 1 ML VIAL IV PRN (11:14)
[2017-04-28] MEDS ORDERED: HYDROcodone/APAP 5-325MG 1 EACH TAB PO PRN (11:14)
[2017-04-28] MEDS ORDERED: HYDROmorphone 0.5 MG/0.5 ML SYRINGE IVP PRN (11:14)
[2017-04-28] MEDS: ATORVASTATIN 20 MG TAB PO SCH (12:09)
[2017-04-28] MEDS: TAMSULOSIN 0.4 MG CAP.ER.24H PO SCH (12:13)
--- NOTE | 2017-04-28 12:20 | P.PN ---
Subjective Progress Note Date: 04/28/17 This is a 76-year-old patient of Dr. Morfin with a past medical history of GERD, hyperlipidemia, OA, enlarged prostate. Patient presents with complains of abdominal pain specifically in the right upper quadrant. He states that he has had issues with this pain over the last 4 days. The pain suddenly came and had resolved approximately 4 days ago. He states that the pain returned a day later. He states he notices it comes after meals. He states he has been having episodes like this over the past year. He states he has been told his gallbladder has been an issue in march but he ignored it. He complains of some nausea but denies vomiting. He denies any change in bowel function. He states he occasionally has had chills over the last few days but denies any fevers, shortness of breath, or chest pain. He states that he has had a recent cardiac catheterization with no significant findings in the last few months. He has no additional complaints at this time. Labs done in ED suggests no leukocytosis, with normal LFTs. Urinalysis suggest hematuria with 47 RBCs but no protein or WBC. Patient does endorses history of renal stones. Abdominal ultrasounds was positive for cholecystitis along with cholelithiasis with gallstone in the neck of gallbladder. No nephrolithiasis seen. 04/28: Patient underwent cholecystectomy today with Dr. Chaidez. He is hemodynamically stable. Patient is scheduled for discharge home tomorrow. Started on a clear liquid diet. Objective - Vital Signs Vital signs: Vital Signs Temp 96.8 F L 04/28/17 10:47 Pulse 89 04/28/17 11:34 Resp 16 04/28/17 11:34 BP 149/67 04/28/17 11:34 Pulse Ox 94 L 04/28/17 11:34 Intake & Output 04/27/17 04/28/17 04/28/17 18:59 06:59 18:59 Intake Total 650 825 800 Output Total 5 Balance 650 825 795 Intake: IV 50 800 Piperacillin-Tazobactam 3 50 .375 gm In Dextrose/Water 1 50ml.bag @ 12.5 mls/hr IVPB ONCE STA Rx#: [id number] Intake, IV Titration 600 825 Amount Sodium Chloride 0.9% 1, 600 825 000 ml @ 75 mls/hr IV . [id number] ROC Rx#:[id number] Output: Estimated Blood Loss 5 Other: Voiding Method Toilet Toilet Toilet # Voids 1 - Exam General appearance: cooperative, no acute distress, obese - EENT Eyes: anicteric sclerae, PERRLA, normal appearance ENT: hearing grossly normal - Neck Neck: no lymphadenopathy, normal ROM, no other, no rigidity, no stridor, no thyromegaly - Respiratory Respiratory: bilateral: CTA, negative: diminished, dullness, rales, rhonchi - Cardiovascular Rhythm: regular Heart sounds: normal: S1, S2 Abnormal Heart Sounds: no systolic murmur, no diastolic murmur, no rub, no S3 Gallop, no S4 Gallop, no click, no other - Gastrointestinal General gastrointestinal: Mild tenderness right upper quadrant on deep palpation , negative Peterson sign. normal bowel sounds, soft - Integumentary Integumentary: no rash - Neurologic Neurologic: CNII-XII intact - Musculoskeletal Musculoskeletal: gait normal, strength equal bilaterally - Psychiatric Psychiatric: A&O x's 3, appropriate affect - Labs CBC & Chem 7: 04/27/17 07:10 04/27/17 07:10 Assessment and Plan Plan: #1 acute cholecystitis with cholelithiasis- nothing by mouth after midnight, continue Zosyn, no fever since last night, Dr. Chaidez to perform laparoscopic cholecystectomy, continue fluids at 75 mL/h, CMP daily, pain control with Dilaudid 1 mg every 3 hours #2 hematuria likely secondary to nephrolithiasis, other differential include bladder cancer. Patient need close follow-up with PCP regarding hematuria. Patient does have significant history of nephrolithiasis which could be contributing to the hematuria but no renal stone or ureteric stones seen on the ultrasound abdomen. Urine cytology sent #3 GERD- continue Protonix 40 mg daily #4 hyperlipidemia continue Lipitor 20 mg daily #5 osteoarthritis - continue Dilaudid 1 mg every 3 hours for pain control #6 BPH continue tamsulosin 0.4 mg by mouth daily #7 DVT prophylaxis- Lovenox 40 subcu daily #8 CODE STATUS full code #9 disposition- home tomorrow Impression and plan of care have been directed as dictated by the signing physician. Ailin Saucedo nurse practitioner acting as scribe for signing physician.
[2017-04-28] MEDS: DOCUSATE 100 MG CAP PO SCH ×2 (20:05→22:12)
[2017-04-29] MEDS: PIPERACILLIN-TAZOBACTAM 3.375 GM in DEXTROSE/WATER 1 50ML.BAG IVPB SCH ×2 (01:59→09:35)
[2017-04-29 07:14] LABS: Basophils % (A) 0 %; CH 30.6; CHCM 32.5; Eosinophils % (A) 1 %; HCT 41.1 % (39.0-53.0); HDW 2.51; HGB 13.2 gm/dL (13.0-17.5); Luc # (Auto) 0.08; Luc % (Auto) 1; Lymphocytes # (A) 1.3 k/uL (1.0-4.8); Lymphocytes % (A) 15 %; MCH 30.3 pg (25.0-35.0); MCV 94.7 fL (80.0-100.0); Mean Platelet Volume 8.8; Monocytes # (A) 0.6 k/uL (0-1.0); Monocytes % (A) 7 %; Neutrophils # (A) 6.6 k/uL (1.3-7.7); Neutrophils % (A) 77 %; RBC 4.34 m/uL (4.30-5.90); RDW 14.7 % (11.5-15.5); WBC 8.6 k/uL (3.8-10.6); WBC (Perox) 8.56
[2017-04-29 07:32] LABS: ALT 187 U/L (21-72); AST 143 U/L (17-59); Alkaline Phosphatase 87 U/L (38-126); Anion Gap 6 mmol/L; Bilirubin, Delta 0.2 mg/dL (0.0-0.2); Blood Urea Nitrogen 12 mg/dL (9-20); Calcium 9.2 mg/dL (8.4-10.2); Carbon Dioxide 27 mmol/L (22-30); Chloride 105 mmol/L (98-107); Glucose 99 mg/dL (74-99); Non-African American GFR(MDRD) >60 (>60 ml/min/1.73 sqM); Potassium 3.9 mmol/L (3.5-5.1); Sodium 138 mmol/L (137-145); Total Bilirubin 0.8 mg/dL (0.2-1.3); Total Protein 5.5 g/dL (6.3-8.2)
[2017-04-29 08:08] VITALS: BP 162/80; PULSE 80; RESP 18; TEMP 98.1
[2017-04-29] MEDS: PANTOPRAZOLE 40 MG/10 ML VIAL IVP SCH (08:40)
[2017-04-29] MEDS: ENOXAPARIN 40 MG/0.4 ML SYRINGE SQ SCH (08:40)
[2017-04-29] MEDS: ATORVASTATIN 20 MG TAB PO SCH (08:41)
[2017-04-29] MEDS: TAMSULOSIN 0.4 MG CAP.ER.24H PO SCH (08:41)
[2017-04-29] MEDS: DOCUSATE 100 MG CAP PO SCH (08:41)
--- NOTE | 2017-04-29 11:03 | P.PN ---
Subjective Progress Note Date: 04/29/17 Principal diagnosis: Cholecystitis Patient seen and examined. Pain is very well controlled he hasn't taken pain meds since the surgery. He is tolerating his diet. No nausea vomiting no fevers chills no shortness of breath or chest pain patient is requesting to go home Objective - Vital Signs Vital signs: Vital Signs Temp 98.1 F 04/29/17 08:06 Pulse 80 04/29/17 08:06 Resp 18 04/29/17 08:06 BP 162/80 04/29/17 08:06 Pulse Ox 96 04/29/17 08:06 Intake & Output 04/28/17 04/29/17 04/29/17 18:59 06:59 18:59 Intake Total 1400 690 Output Total 5 Balance 1395 690 Intake: IV 800 Intake, IV Titration 600 Amount Lactated Ringers 1,000 ml 600 @ 75 mls/hr IV .[id number] ONE Rx#:[id number] Oral 690 Output: Estimated Blood Loss 5 Other: Voiding Method Toilet Toilet Toilet # Voids 2 - Constitutional General appearance: Present: average body habitus, cooperative - EENT Eyes: Present: PERRLA - Respiratory Details: Nonlabored breathing - Cardiovascular Rhythm: regular - Gastrointestinal Gastrointestinal Comment(s): Soft nontender nondistended incisions clean dry and intact - Psychiatric Psychiatric: Present: A&O x's 3 - Labs CBC & Chem 7: 04/29/17 06:12 04/29/17 06:12 Labs: Abnormal Lab Results - Last 24 Hours (Table) 04/29/17 Range/Units 06:12 AST 143 H (17-59) U/L ALT 187 H (21-72) U/L Total Protein 5.5 L (6.3-8.2) g/dL Albumin 3.3 L (3.5-5.0) g/dL Assessment and Plan Assessment: Postoperative day one laparoscopic cholecystectomy Plan: Patient doing very well. He may be discharged home with follow-up with Dr. Chaidez in the clinic
--- NOTE | 2017-04-29 11:18 | P.DS ---
Providers Date of admission: 04/26/17 18:31 Expected date of discharge: 04/29/17 Attending physician: Shine Johnson MD Consults: 04/26/17 18:30 Consult Physician Stat Consulting Provider: Ton Chaidez Consult Reason/Comments: Cholecystitis Do you want consulting provider notified?: Yes Primary care physician: Renard Morfin [facility] Course: This is a 76-year-old patient of Dr. Morfin with a past medical history of GERD, hyperlipidemia, OA, enlarged prostate. Patient presents with complains of abdominal pain specifically in the right upper quadrant. He states that he has had issues with this pain over the last 4 days. The pain suddenly came and had resolved approximately 4 days ago. He states that the pain returned a day later. He states he notices it comes after meals. He states he has been having episodes like this over the past year. He states he has been told his gallbladder has been an issue in march but he ignored it. He complains of some nausea but denies vomiting. He denies any change in bowel function. He states he occasionally has had chills over the last few days but denies any fevers, shortness of breath, or chest pain. He states that he has had a recent cardiac catheterization with no significant findings in the last few months. He has no additional complaints at this time. Labs done in ED suggests no leukocytosis, with normal LFTs. Urinalysis suggest hematuria with 47 RBCs but no protein or WBC. Patient does endorses history of renal stones. Abdominal ultrasounds was positive for cholecystitis along with cholelithiasis with gallstone in the neck of gallbladder. No nephrolithiasis seen. 04/28: Patient underwent cholecystectomy today with Dr. Chaidez. He is hemodynamically stable. Patient is scheduled for discharge home tomorrow. Started on a clear liquid diet. 04/29: AST is 143 and ALT 187. Otherwise normal labs. Patient has been cleared for discharge by Dr. escalante. Patient denies any need for pain medication. Patient will be discharged home today in stable condition Discharge diagnoses: #1 acute cholecystitis with cholelithiasis #2 hematuria likely secondary to nephrolithiasis, other differential include bladder cancer. Patient need close follow-up with PCP regarding hematuria. Patient does have significant history of nephrolithiasis which could be contributing to the hematuria but no renal stone or ureteric stones seen on the ultrasound abdomen. Urine cytology sent #3 GERD #4 hyperlipidemia #5 osteoarthritis generalized #6 BPH Discharge plan- home Impression and plan of care have been directed as dictated by the signing physician. Ailin Saucedo nurse practitioner acting as scribe for signing physician. Patient Condition at Discharge: Good Plan - Discharge Summary Discharge Rx Participant: No New Discharge Prescriptions: Continue Multivitamins, Thera [Multivitamin (formulary)] 1 tab PO DAILY Tamsulosin [Flomax] 0.4 mg PO DAILY Aspirin 81 mg PO DAILY Fluticasone Nasal [place] [Flonase Nasal [place]] 2 spr EA NOSTRIL DAILY Atorvastatin [Lipitor] 20 mg PO DAILY Discharge Medication List Aspirin 81 mg PO DAILY 12/11/16 [History] Multivitamins, Thera [Multivitamin (formulary)] 1 tab PO DAILY 12/11/16 [History ] Tamsulosin [Flomax] 0.4 mg PO DAILY 12/11/16 [History] Atorvastatin [Lipitor] 20 mg PO DAILY 04/26/17 [History] Fluticasone Nasal [place] [Flonase Nasal [place]] 2 spr EA NOSTRIL DAILY 04/26/17 [ History] Follow up Appointment(s)/Referral(s): Renard Morfin MD [Primary Care Provider] - 1 Week Ton Chaidez DO [Doctor of Osteopathic Medicine] - 1 Week Patient Instructions/Handouts: *Surgery [facility] - Laparoscopic Cholecystectomy Discharge Instructions Discharge Disposition: HOME SELF-CARE
== END 2017-04-29 11:32 | disposition home or self-care (01) | DRG 419 ==
LOC: EC 14:35 → 5MS5E 18:31
PROVIDERS: ADMIT Internal Medicine; ATTEND Internal Medicine
PROC: 0FT44ZZ Resection of Gallbladder, Percutaneous Endoscopic Approach (ICD-10-PCS; principal; 2017-04-26)
DX: K80.00 Calculus of gallbladder with acute cholecystitis without obstruction (principal); R31.9 Hematuria, unspecified; E78.5 Hyperlipidemia, unspecified; K21.9 Gastro-esophageal reflux disease without esophagitis; M19.90 Unspecified osteoarthritis, unspecified site; N40.0 Benign prostatic hyperplasia without lower urinary tract symptoms; Z79.82 Long term (current) use of aspirin; Z79.899 Other long term (current) drug therapy; Z87.891 Personal history of nicotine dependence; Z98.41 Cataract extraction status, right eye; Z98.42 Cataract extraction status, left eye; Z87.19 Personal history of other diseases of the digestive system; Z87.442 Personal history of urinary calculi; Z90.49 Acquired absence of other specified parts of digestive tract
CPT/HCPCS: 36415; 76705; 80048; 80053; 80076; 81001; 82150; 82550; 82553; 82570; 83690; 84156; 84484; 85025; 88108; 88304; 93005; 96365; 96375; 99285

== ENCOUNTER → 2022-12-19 | Day surgery (SDC) | payer MEDICARE ==
[2022-12-13 15:52] VITALS: BMI 27.1
[~2022-12-19] MED LIST: ALPRAZolam 0.25 MG TAB PO PRN; ALPRAZolam 0.5 MG TAB PO PRN; ASPIRIN 325 MG TAB PO STA; ASPIRIN 81 MG PO SCH; ATORVASTATIN 20 MG TAB PO SCH; HEPARIN SODIUM 1,000 UN/ML (10ML VL) IV ONE; HEPARIN SODIUM 1,000 UN/ML (10ML VL) ONE; IOPAMIDOL-370 100ML BTL INJ ONE; LIDOCAINE 1% INJ 10MG/ML (5 ML VIAL-PF) SQ ONE; METOPROLOL TARTRATE 25 MG TAB PO SCH; NITROGLYCERIN SL TABS 0.4 MG TAB SUBLINGUAL PRN; RX INFO: IV CONTRAST WAS GIVEN 1 EACH MISC MISCELLANE PRN; SODIUM CHLORIDE 0.9% 1,000 ML IV ONE; SODIUM CHLORIDE 0.9% 1,000 ML IV SCH; SODIUM CHLORIDE 0.9% 1,000 ML in EMPTY BAG 1 BAG IV SCH; VERAPAMIL SYRINGE (5 MG/10 ML) INTRAARTER ONE; amLODIPine 5 MG TAB PO SCH; fentaNYL (PF) 50 MCG/ML 2 ML AMP IVP ONE; fentaNYL (PF) 50 MCG/ML 2 ML AMP ONE; lisinopriL 5 MG TAB PO SCH
[2022-12-19 08:24] VITALS: RESP 16; TEMP 98.2
--- NOTE | 2022-12-19 11:12 | P.CARDCATH ---
Date of Procedure: 12/19/22 Description of Procedure: Cardiac Catheterization: The patient is an 82-year-old male with known history of hypertension and hyperlipidemia, history of CAD who recently had an MPI with moderate inducible ischemia. Recommendations were made regarding cardiac catheterization, the risks and the complications were discussed with the patient who is in full understanding and agreement. 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 Using Xylocaine Anesthesia and Seldinger technique, a 6-Scottish sheath was introduced in the right radial artery . Subsequently, selective coronary angiography was performed using a 5-Scottish 3.5 bend Flash catheter. Multiple views of the coronary artery including hemiaxial views were obtained. The 5-Scottish pigtail catheter was used to cross the aortic valve and LVEDP was calculated. Following that, catheter and sheath were removed. Hemostasis was obtained with deployment of TR band . There was no immediate complication. Patient was returned to room in stable condition. Of note, the patient received a total of 4500 units of intravenous heparin as well as intra-arterial verapamil. Findings: Fluoroscopy: Calcifications of the LAD was noted Left main: This vessel gives rise to a left anterior descending artery, the left main has no high-grade stenosis LAD: This is a large size vessel giving rise to 2 diagonal branch, the proximal and mid LAD is calcified. The mid LAD after the second branch has a 40-50% plaque with no progression compared to 2017, the rest of the vessel has no high- grade stenosis. 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 Left Ventriculogram: Not performed Hemodynamics: There was no gradient across the aortic valve , LVEDP was 16-20 mmHg Conclusion: 1. 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 No progression compared to 2017 Recommendations: The patient will continue on the present therapy with aggressive coronary risks modifications. The findings and the recommendations were discussed with the patient and the family and they were in full understanding and agreement. Duration of sedation is 21 minutes.
[2022-12-19 14:12] VITALS: BP 126/63; PULSE 72
== END | disposition home or self-care (01) ==
LOC: CATHCVL 07:53
PROVIDERS: ATTEND Internal Medicine Interventional Cardiology
DX: I25.10 Atherosclerotic heart disease of native coronary artery without angina pectoris (principal); Q24.5 Malformation of coronary vessels; I10 Essential (primary) hypertension; E78.2 Mixed hyperlipidemia; I25.9 Chronic ischemic heart disease, unspecified; F17.290 Nicotine dependence, other tobacco product, uncomplicated; Z79.82 Long term (current) use of aspirin; Z79.899 Other long term (current) drug therapy
CPT/HCPCS: 93458; 99152; C1769 ×2; C1894; J2001; J3010; J1644; Q9967

== ENCOUNTER → 2023-02-16 | Outpatient (CLI) | payer MEDICARE ==
[2023-02-16 13:20] LABS: African American GFR (CKD) >90 (>60 ml/min/1.73 sqM); Blood Urea Nitrogen 21 mg/dL (9-20); Non-African American GFR(CKD) 88 (>60 ml/min/1.73 sqM)
--- NOTE | 2023-02-16 19:57 | CT ---
EXAMINATION TYPE: CT urogram wo/w con DATE OF EXAM: 02/16/2023 COMPARISON: MRI lumbar spine 03/09/2017 HISTORY: 82-year-old male R31.29, microscopic hematuria TECHNIQUE: Contiguous axial scanning of the abdomen and pelvis performed without and with IV Contrast , patient injected with 100 mL of Isovue 300. Delayed images through the kidneys and bladder were obt ained. Coronal/sagittal reconstructions performed. 3-D reconstructions generated on a dedicated [employer] workstation. CT DLP: 2923.8 mGycm Automated exposure control for dose reduction was used. FINDINGS: The heart is borderline in size without pericardial effusion. Some strandy atelectasis or scarring ba silar right middle lobe. No pleural effusion. There may be a tiny hiatal hernia. Bile duct dilated at 1.4 cm with mild intrahepatic biliary ductal dilatation as well. This may be chr onic for the patient's status post cholecystectomy. Portal venous system is patent. Otherwise, no foc al liver lesion is seen. Diffuse low density thickening of the left adrenal gland without discrete nodularity. Right adrenal gland, spleen, and atrophic pancreas show no gross abnormality. Kidneys show no hydronephrosis or nephrolithiasis. 2 renal cortical cysts on the right measuring up to 2.6 cm. A single small renal cortical cyst on the left measuring up to 1.2 cm. No suspicious renal mass on either side. No abnormal filling defect within the renal collecting system or along the course of either ureter. Prominent distention of the urinary bladder. Correlate to ensure voluntary retention. There is a 1.4 cm dependent bladder stone. Prostate gland is enlarged measuring 6.5 cm wide with central calcificati ons. [id number] atherosclerotic calcifications infrarenal abdominal aorta and common iliac arteries. No dilated small bowel, free fluid, or free air. No mesenteric or retroperitoneal lymphadenopathy. Mild overall stool burden. Fatty stool is present throughout. Sigmoid diverticulosis without pericolo teja inflammatory change. Bones: There is severe endplate fracture of L1 with approximately 50% overall height loss and minimal retropulsion into the ventral spinal canal. There may be very mild paravertebral soft tissue thicken ing at this level. Moderate spondylotic change mid to lower lumbar spine. IMPRESSION: 1. A FEW BENIGN RENAL CORTICAL CYSTS ON BOTH SIDES MEASURING UP TO 2.6 CM. 2. NO NEPHROLITHIASIS, HYDRONEPHROSIS, OR SUSPICIOUS RENAL MASS. NO ABNORMAL COLLECTING SYSTEM OR URE TERAL LESION IS SEEN. WE DO NOTE A 1.4 CM STONE WITHIN THE BLADDER. 3. PROSTATOMEGALY AT 6.5 CM WIDE. CORRELATE WITH PSA VALUES. 4. IN ADDITION, THERE IS PROMINENT DISTENTION OF THE BLADDER. CORRELATE TO EXCLUDE URINARY RETENTION FROM BLADDER OUTLET OBSTRUCTION. 5. SIGMOID DIVERTICULOSIS WITHOUT ACUTE DIVERTICULITIS. 6. L1 SUPERIOR ENDPLATE FRACTURE WITH 50% OVERALL HEIGHT LOSS. THERE MAY BE SLIGHT PARAVERTEBRAL SOFT TISSUE SWELLING. CONSIDER A POSSIBLE SUBACUTE ENDPLATE FRACTURE HERE.
== END | disposition home or self-care (01) ==
LOC: RADCTMAIN 12:27
PROVIDERS: ATTEND Internal Medicine
DX: K57.30 Diverticulosis of large intestine without perforation or abscess without bleeding (principal); N28.1 Cyst of kidney, acquired; N40.0 Benign prostatic hyperplasia without lower urinary tract symptoms; N21.0 Calculus in bladder; N32.89 Other specified disorders of bladder; R31.29 Other microscopic hematuria
CPT/HCPCS: 82565; 84520; 74178; 36415; 74400; Q9967

== ENCOUNTER → 2023-06-22 | Outpatient (CLI) | payer MEDICARE ==
[2023-06-22 20:23] LABS: Basophils # (A) 0.03 X 10*3/uL (0.00-0.10); Basophils % (A) 0.4 %; Eosinophils # (A) 0.15 X 10*3/uL (0.04-0.35); Eosinophils % (A) 1.8 %; HCT 41.6 % (39.6-50.0); HGB 13.2 g/dL (13.0-17.0); Lymphocytes # (A) 1.51 X 10*3/uL (0.90-5.00); Lymphocytes % (A) 17.9 %; MCH 30.1 pg (27.0-32.0); MCHC 31.7 g/dL (32.0-37.0); Mean Platelet Volume 10.7 FL (9.5-12.2); Monocytes # (A) 0.78 X 10*3/uL (0.20-1.00); Monocytes % (A) 9.2 %; NRBC Per 100 WBC 0 X 10*3/uL (0.00-0.01); Neutrophils # (A) 5.94 X 10*3/uL (1.80-7.70); Neutrophils % (A) 70.3 %; Platelet Count 253 X 10*3/uL (140-440); RBC 4.38 X 10*6/uL (4.40-5.60); RDW 13.3 % (11.5-14.5); WBC 8.44 X 10*3/uL (4.50-10.00)
[2023-06-22 21:01] LABS: BUN/Creat Ratio 24.12 Ratio (12.00-20.00); Blood Urea Nitrogen 19.3 mg/dL (9.0-27.0); Calcium 9.3 mg/dL (8.7-10.3); Carbon Dioxide 25.3 mmol/L (21.6-31.8); Chloride 102 mmol/L (96-109); Glucose 118 mg/dL (70-110); Sodium 138 mmol/L (135-145)
== END | disposition home or self-care (01) ==
LOC: LABPAT 14:38
PROVIDERS: ATTEND Urology
DX: Z01.812 Encounter for preprocedural laboratory examination (principal); N21.0 Calculus in bladder
CPT/HCPCS: 80048; 85025

== ENCOUNTER 2023-06-28 07:18 | Day surgery (SDC) | payer MEDICARE ==
--- NOTE | 2023-06-28 06:38 | P.GSHP ---
History of Present Illness H&P Date: 06/28/23 Chief Complaint: Hematuria The patient is an 82-year-old white male who presents with a one-year history of intermittent gross hematuria, associated with urinary frequency and nocturia. A CT urogram shows prostatic enlargement, renal cysts, and a 1.4 cm bladder calculus. He is taken tamsulosin for over 5 years. He has been found to empty his bladder incompletely. - Constitutional Constitutional: Reports chills - Gastrointestinal Gastrointestinal: Denies nausea, Denies vomiting - Genitourinary (Male) Genitourinary: Reports hematuria, Reports nocturia, Reports urinary frequency Past Medical History Past Medical History: GERD/Reflux, Hyperlipidemia, Hypertension, Osteoarthritis (OA), Prostate Disorder Additional Past Medical History / Comment(s): hiatal hernia,enlarged prostate,kidney stone, murmur,lower bridges to lower teeth, "bulging disc lower back" History of Any Multi-Drug Resistant Organisms: None Reported Past Surgical History: Heart Catheterization, Hernia Repair, Tonsillectomy Additional Past Surgical History / Comment(s): vasectomy, incised growth in throat, katia cataracts Past Anesthesia/Blood Transfusion Reactions: No Reported Reaction Additional Past Anesthesia/Blood Transfusion Reaction / Comment(s): no hx blood transfusion Smoking Status: Former smoker - Past Family History Mother Family Medical History: No Reported History Additional Family Medical History / Comment(s): No significant medical history in mom and dad, mother of old age. Father Family Medical History: No Reported History Medications and Allergies Home Medications Medication Instructions Recorded Confirmed Type Aspirin 81 mg PO DAILY 12/11/16 06/25/23 History Atorvastatin [Lipitor] 20 mg PO DAILY 04/26/17 06/25/23 History Metoprolol Tartrate [Lopressor] 25 mg PO BID 12/13/22 06/25/23 History Mv-Min/Folic/K1/Lycopen/Lutein 1 each PO DAILY 12/13/22 06/25/23 History [Centrum Silver Men Tablet] amLODIPine [Norvasc] 5 mg PO DAILY 12/13/22 06/25/23 History lisinopriL [Zestril] 5 mg PO DAILY 12/13/22 06/25/23 History Fish Oil(Unk) 1 tab PO DAILY 06/25/23 06/25/23 History Vit D (Unk) 1 tab PO DAILY 06/25/23 06/25/23 History Allergies Allergy/AdvReac Type Severity Reaction Status Date / Time No Known Allergies Allergy Verified 06/25/23 09:39 Surgical - Exam - General well developed, well nourished, no distress - Respiratory normal respiratory effort - Abdomen Abdomen: soft, non tender, no guarding, no rigid, no rebound - Genitourinary normal penis with no external lesions, testicles non-tender - Rectum Rectum: normal sphincter tone, no masses, other (Prostate enlarged and smooth) - Psychiatric oriented to time, oriented to person, oriented to place, speech is normal, memory intact Results - Imaging CT scan - abdomen: report reviewed, image reviewed Assessment and Plan (1) Calculus in bladder Status: Acute Code(s): N21.0 - CALCULUS IN BLADDER SNOMED Code(s): 13461568 Plan: Cystoscopy with cystolithotripsy. The procedure has been reviewed in detail with the patient. He has been made aware of potential risks, which include anesthesia, bleeding, infection, bladder perforation, and postoperative voiding dysfunction.
[~2023-06-28 07:18] MED LIST changes: -ALPRAZolam 0.25 MG TAB PO PRN; -ALPRAZolam 0.5 MG TAB PO PRN; -ASPIRIN 325 MG TAB PO STA; -ASPIRIN 81 MG PO SCH; -ATORVASTATIN 20 MG TAB PO SCH; +DEXAMETHASONE SOD PHOSPHATE 4 MG/ML 1 ML VIAL IV ONE; -HEPARIN SODIUM 1,000 UN/ML (10ML VL) IV ONE; -HEPARIN SODIUM 1,000 UN/ML (10ML VL) ONE; +HYDROmorphone 0.5 MG/0.5 ML SYRINGE IVP PRN; -IOPAMIDOL-370 100ML BTL INJ ONE; +LACTATED RINGERS 1,000 ML IV SCH; +LIDOCAINE 1% (10MG/ML) FOR IV START INTRADERMA PRN; -LIDOCAINE 1% INJ 10MG/ML (5 ML VIAL-PF) SQ ONE; -METOPROLOL TARTRATE 25 MG TAB PO SCH; -NITROGLYCERIN SL TABS 0.4 MG TAB SUBLINGUAL PRN; +ONDANSETRON 4 MG/2 ML VIAL IVP ONE; -RX INFO: IV CONTRAST WAS GIVEN 1 EACH MISC MISCELLANE PRN; -SODIUM CHLORIDE 0.9% 1,000 ML IV ONE; -SODIUM CHLORIDE 0.9% 1,000 ML IV SCH; -SODIUM CHLORIDE 0.9% 1,000 ML in EMPTY BAG 1 BAG IV SCH; -VERAPAMIL SYRINGE (5 MG/10 ML) INTRAARTER ONE; -amLODIPine 5 MG TAB PO SCH; +droPERidol 5 MG/2 ML VIAL IVP ONE; -fentaNYL (PF) 50 MCG/ML 2 ML AMP IVP ONE; -fentaNYL (PF) 50 MCG/ML 2 ML AMP ONE; -lisinopriL 5 MG TAB PO SCH
[2023-06-28] MEDS ORDERED: PHENYLEPHRINE-0.9% NACL SYG 1,000 MCG/10 ML SYRINGE ONE (09:06)
[2023-06-28] MEDS ORDERED: ePHEDrine 50 MG/ML 1 ML VIAL ONE (09:06)
[2023-06-28] MEDS ORDERED: fentaNYL (PF) 50 MCG/ML 2 ML AMP ONE (09:06)
[2023-06-28] MEDS ORDERED: PROPOFOL 10 MG/ML 20 ML VIAL IV ONE (09:06)
[2023-06-28] MEDS ORDERED: SUCCINYLCHOLINE CHLORIDE 200 MG/10 ML VIAL IV ONE (09:06)
[2023-06-28] MEDS ORDERED: ROCURONIUM 10 MG/ML (5 ML VIAL) IV ONE (09:06)
[2023-06-28] MEDS ORDERED: FUROSEMIDE 10 MG/ML 4 ML VIAL ONE (09:06)
[2023-06-28] MEDS ORDERED: NEOSTIGMINE 1 MG/ML 10 ML VIAL ONE (09:06)
[2023-06-28] MEDS ORDERED: GLYCOPYRROLATE 0.2 MG/ML 2 ML VIAL ONE (09:06)
[2023-06-28] MEDS ORDERED: MIDAZOLAM 2 MG/2 ML VIAL ONE (09:06)
[2023-06-28] MEDS ORDERED: LIDOCAINE 1% INJ 10MG/ML (20 ML MDV) ONE (09:06)
[2023-06-28] MEDS ORDERED: LACTATED RINGERS 1,000 ML IV ONE (10:37)
--- NOTE | 2023-06-28 10:45 | P.OP ---
Date of Procedure: 06/28/23 Preoperative Diagnosis: Bladder calculus Postoperative Diagnosis: Bladder calculi Procedure(s) Performed: Cystoscopy, cystolithotripsy, fulguration of bleeders Anesthesia: ANNAA Surgeon: Deacon Rosa Estimated Blood Loss (ml): 30 IV fluids (ml): 700 Pathology: other (Bladder calculus fragments, sent for chemical analysis) Condition: stable Disposition: PACU Indications for Procedure: The patient is an 82-year-old white male who presents with a one-year history of intermittent gross hematuria, associated with urinary frequency and nocturia. A CT urogram shows prostatic enlargement, renal cysts, and a 1.4 cm bladder calculus. He is taken tamsulosin for over 5 years. He has been found to empty his bladder incompletely. Operative Findings: 2 bladder calculi, each measuring approximately 2 cm in size. Significant prostatic enlargement. Description of Procedure: The patient was taken to the operating room and placed in the dorsal lithotomy position, with legs supported in Mitch stirrups. The external genitalia was prepped and draped sterilely. The 30 lens was used to introduce the 21-Georgian Brewer cystoscopic sheath through the urethra and into the bladder under direct vision. The urethra appeared normal. The prostate showed evidence of considerable lateral lobe enlargement and was visually occluded. The prostatic urethral length was approximately 5 cm, and there was a high median bar. The bladder was examined in its entirety. The ureteral orifices appeared normal. A total of 2 calculi were seen, each measuring approximately 2 cm in size. No tumors were seen. No diverticuli were seen. Using the 1000 micron Holmium laser probe, lithotripsy was performed. Lithotripsy was continued until all calculus fragments could be removed using the Ellik evacuator. Once this was completed, the bladder was inspected. Oozing was noted from the prostatic urethra. The Bugbee electrode was used to fulgurate bleeders, and adequate hemostasis was attained. There was no evidence of bladder perforation. A 20- Georgian Brizuela catheter was placed. The return was pink-tinged. The patient tolerated the procedure well was taken to the recovery room in stable condition.
[2023-06-28 11:25] VITALS: TEMP 97.4
[2023-06-28 12:14] VITALS: RESP 14
[2023-06-28 12:39] VITALS: BP 135/71; PULSE 83
== END 2023-06-28 12:45 | disposition home or self-care (01) ==
LOC: OR 07:18
PROVIDERS: ATTEND Urology
DX: N21.0 Calculus in bladder (principal); N28.1 Cyst of kidney, acquired; N40.1 Benign prostatic hyperplasia with lower urinary tract symptoms; R39.14 Feeling of incomplete bladder emptying; R35.0 Frequency of micturition; R35.1 Nocturia; E78.5 Hyperlipidemia, unspecified; I10 Essential (primary) hypertension; K21.9 Gastro-esophageal reflux disease without esophagitis; M19.90 Unspecified osteoarthritis, unspecified site; Z87.891 Personal history of nicotine dependence; Z87.442 Personal history of urinary calculi; Z79.82 Long term (current) use of aspirin; Z79.899 Other long term (current) drug therapy
CPT/HCPCS: 82365; 52317; 52214; C1758; J2250; J0330; J1100; J1940; J2710; J0690; J2405; J2001; J3010; J2704; J2371

== ENCOUNTER → 2023-08-31 | Outpatient (CLI) | payer MEDICARE ==
[2023-08-31 18:49] LABS: Basophils # (A) 0.03 X 10*3/uL (0.00-0.10); Basophils % (A) 0.5 %; Eosinophils # (A) 0.56 X 10*3/uL (0.04-0.35); Eosinophils % (A) 8.8 %; HCT 42.7 % (39.6-50.0); HGB 13.5 g/dL (13.0-17.0); Lymphocytes # (A) 1.84 X 10*3/uL (0.90-5.00); MCH 29.8 pg (27.0-32.0); MCHC 31.6 g/dL (32.0-37.0); MCV 94.3 FL (80.0-97.0); Mean Platelet Volume 11.3 FL (9.5-12.2); Monocytes # (A) 0.82 X 10*3/uL (0.20-1.00); Monocytes % (A) 12.9 %; NRBC Per 100 WBC 0 X 10*3/uL (0.00-0.01); Neutrophils # (A) 3.09 X 10*3/uL (1.80-7.70); Neutrophils % (A) 48.6 %; Platelet Count 188 X 10*3/uL (140-440); RBC 4.53 X 10*6/uL (4.40-5.60); RDW 13.5 % (11.5-14.5); WBC 6.35 X 10*3/uL (4.50-10.00)
[2023-08-31 18:59] LABS: BUN/Creat Ratio 30.86 Ratio (12.00-20.00); Blood Urea Nitrogen 21.6 mg/dL (9.0-27.0); Calcium 9.6 mg/dL (8.7-10.3); Carbon Dioxide 26.6 mmol/L (21.6-31.8); Chloride 104 mmol/L (96-109); Glucose 111 mg/dL (70-110); Potassium 4.6 mmol/L (3.5-5.5); Sodium 139 mmol/L (135-145)
== END | disposition home or self-care (01) ==
LOC: LABPAT 16:11
PROVIDERS: ATTEND Urology
DX: Z01.812 Encounter for preprocedural laboratory examination (principal); N40.1 Benign prostatic hyperplasia with lower urinary tract symptoms
CPT/HCPCS: 36415; 80048; 85025

== ENCOUNTER 2023-09-13 07:44 | Day surgery (SDC) | payer MEDICARE ==
--- NOTE | 2023-09-10 10:16 | P.GSHP ---
History of Present Illness H&P Date: 09/10/23 The patient is an 83-year-old white male who presents with a one-year history of intermittent gross hematuria, associated with urinary frequency and nocturia. A CT urogram showed prostatic enlargement, renal cysts, and a 1.4 cm bladder calculus. He has taken tamsulosin for over 5 years. He has been found to empty his bladder incompletely. He underwent removal of 2 bladder calculi in June 2023. However, he continues to empty his bladder incompletely and reports significant voiding symptoms. Alternative treatment options were reviewed, and he has elected to undergo a transurethral resection of the prostate (TURP). He comes for this reason. - Genitourinary (Male) Genitourinary: Reports nocturia Past Medical History Past Medical History: GERD/Reflux, Hyperlipidemia, Osteoarthritis (OA), Prostate Disorder Additional Past Medical History / Comment(s): hiatal hernia,enlarged prostate,kidney stone, murmur,lower bridges to lower teeth, "bulging disc lower back" History of Any Multi-Drug Resistant Organisms: None Reported Past Surgical History: Heart Catheterization, Hernia Repair, Tonsillectomy Additional Past Surgical History / Comment(s): vasectomy, incised growth in throat, katia cataracts Past Anesthesia/Blood Transfusion Reactions: No Reported Reaction Additional Past Anesthesia/Blood Transfusion Reaction / Comment(s): no hx blood transfusion Smoking Status: Former smoker - Past Family History Mother Family Medical History: No Reported History Additional Family Medical History / Comment(s): No significant medical history in mom and dad, mother of old age. Father Family Medical History: No Reported History Medications and Allergies Home Medications Medication Instructions Recorded Confirmed Type Aspirin 81 mg PO DAILY 12/11/16 06/28/23 History Atorvastatin [Lipitor] 20 mg PO DAILY 04/26/17 06/28/23 History Metoprolol Tartrate [Lopressor] 25 mg PO BID 12/13/22 06/28/23 History Mv-Min/Folic/K1/Lycopen/Lutein 1 each PO DAILY 12/13/22 06/28/23 History [Centrum Silver Men Tablet] amLODIPine [Norvasc] 5 mg PO DAILY 12/13/22 06/28/23 History lisinopriL [Zestril] 5 mg PO DAILY 12/13/22 06/28/23 History Fish Oil(Unk) 1 tab PO DAILY 06/25/23 06/28/23 History Vit D (Unk) 1 tab PO DAILY 06/25/23 06/28/23 History Allergies Allergy/AdvReac Type Severity Reaction Status Date / Time No Known Allergies Allergy Verified 06/28/23 08:01 Surgical - Exam - General well developed, well nourished, no distress - Respiratory normal respiratory effort - Abdomen Abdomen: soft, non tender, no guarding, no rigid, no rebound - Genitourinary normal penis with no external lesions, testicles non-tender - Rectum Rectum: normal sphincter tone, no masses, other (Prostate enlarged but smooth) - Psychiatric oriented to time, oriented to person, oriented to place, speech is normal, memory intact Assessment and Plan (1) Benign prostatic hyperplasia with lower urinary tract symptoms Status: Acute Code(s): N40.1 - BENIGN PROSTATIC HYPERPLASIA WITH LOWER URINARY TRACT SYMP SNOMED Code(s): 815178504 Plan: Cystoscopy, bipolar TURP. The procedure has been reviewed in detail with the patient. He has been made aware of potential risks, which include anesthesia, bleeding, infection, urethral stricture, vesical neck contracture, retrograde ejaculation, urinary incontinence, and persistent voiding symptoms.
[2023-09-11 14:22] VITALS: BMI 27.8
[~2023-09-13 07:44] MED LIST changes: -DEXAMETHASONE SOD PHOSPHATE 4 MG/ML 1 ML VIAL IV ONE; -LACTATED RINGERS 1,000 ML IV SCH; +MIDAZOLAM 2 MG/2 ML VIAL IV PRN; -ONDANSETRON 4 MG/2 ML VIAL IVP ONE; -droPERidol 5 MG/2 ML VIAL IVP ONE
[2023-09-13] MEDS: DEXAMETHASONE SOD PHOSPHATE 4 MG/ML 1 ML VIAL IV ONE (08:25)
[2023-09-13] MEDS: LACTATED RINGERS 1,000 ML IV SCH (08:25)
[2023-09-13] MEDS: ONDANSETRON 4 MG/2 ML VIAL IVP ONE (08:25)
[2023-09-13 08:36] LABS: Glucose,Whole Blood 108 mg/dL (70-110)
[2023-09-13] MEDS ORDERED: GLYCOPYRROLATE 0.2 MG/ML 2 ML VIAL ONE (10:16)
[2023-09-13] MEDS ORDERED: NEOSTIGMINE 1 MG/ML 10 ML VIAL ONE (10:16)
[2023-09-13] MEDS ORDERED: PROPOFOL 10 MG/ML 20 ML VIAL IV ONE (10:16)
[2023-09-13] MEDS ORDERED: MIDAZOLAM 2 MG/2 ML VIAL ONE (10:16)
[2023-09-13] MEDS ORDERED: ROCURONIUM 10 MG/ML (5 ML VIAL) IV ONE (10:16)
[2023-09-13] MEDS ORDERED: ePHEDrine 50 MG/ML 1 ML VIAL ONE (10:16)
[2023-09-13] MEDS ORDERED: LIDOCAINE 1% INJ 10MG/ML (20 ML MDV) ONE (10:16)
[2023-09-13] MEDS ORDERED: fentaNYL (PF) 50 MCG/ML 2 ML AMP ONE (10:16)
[2023-09-13] MEDS ORDERED: SUCCINYLCHOLINE CHLORIDE 200 MG/10 ML VIAL IV ONE (10:16)
--- NOTE | 2023-09-13 13:24 | P.OP ---
Date of Procedure: 09/13/23 Preoperative Diagnosis: BPH with obstruction Postoperative Diagnosis: Same Procedure(s) Performed: Cystoscopy, bipolar transurethral resection of prostate (TURP) Anesthesia: SAMMY Surgeon: Deacon Rosa Estimated Blood Loss (ml): 200 IV fluids (ml): 400 Condition: stable Disposition: PACU Indications for Procedure: The patient is an 83-year-old white male who presents with a one-year history of intermittent gross hematuria, associated with urinary frequency and nocturia. A CT urogram showed prostatic enlargement, renal cysts, and a 1.4 cm bladder calculus. He has taken tamsulosin for over 5 years. He has been found to empty his bladder incompletely. He underwent removal of 2 bladder calculi in June 2023. However, he continues to empty his bladder incompletely and reports significant voiding symptoms. Alternative treatment options were reviewed, and he has elected to undergo a transurethral resection of the prostate (TURP). He comes for this reason. Operative Findings: Bilobar BPH with high median bar. Description of Procedure: The patient was taken in the operating room and placed in the dorsolithotomy position. The external genitalia was prepped and draped sterilely. The 25- Irish ACMI resectoscope sheath was introduced into the bladder. The bladder was inspected. Both ureteral orifices were of normal anatomic location and configuration, and clear urine effluxed from both. No tumors or foreign bodies were seen. Examination of the prostate revealed complete obstruction with a bilobar configuration and a high, obstructing median bar. Using the bipolar cutting loop, the prostatic urethra was incised at the 6 o'clock position, extending through the vesical neck up to the verumontanum. This allowed passage of the resectoscope into the bladder without difficulty and improved flow. Next , the lateral lobes were resected down to the surgical capsule. The remainder of the floor of the prostate was then resected, proximal to the verumontanum. Lastly, the remaining anterior tissue was resected. The residual apical tissue was then carefully resected, with care taken to avoid injury to the external urinary sphincter. The resection was carried down to the surgical capsule in all 4 quadrants. A small capsular perforation occurred on the right side. The prostatic fossa was then carefully examined, and any areas of bleeding were controlled with electrocautery. Good hemostasis was attained. The resectoscope was withdrawn into the bulbous urethra. The external urinary sphincter remained intact. The prostatic fossa was open. The [employer] evacuator was used to remove all prostate chips from the bladder. These were saved and sent for pathologic examination. The resectoscope was removed, and a 22 Irish, 3-Way Brizuela catheter was placed. The return was essentially clear. Continuous bladder irrigation was started using 0.9 normal saline. The patient tolerated the procedure well was taken to the recovery room in stable condition.
[2023-09-13] MEDS ORDERED: HYOSCYAMINE SULFATE 0.125 MG TAB PO PRN (13:29)
[2023-09-13] MEDS ORDERED: ACETAMINOPHEN TAB 325 MG TAB PO PRN (13:29)
[2023-09-13] MEDS: SODIUM CHLORIDE 0.9% IRRIGATIO 3,000 ML IRRIGATION SCH (17:34)
[2023-09-13] MEDS: DEXTROSE 5%-0.45% NACL 1,000 ML IV SCH (19:56)
[2023-09-13] MEDS: amLODIPine 5 MG TAB PO SCH (21:59)
[2023-09-13] MEDS: DOCUSATE 100 MG CAP PO SCH (21:59)
[2023-09-13] MEDS: METOPROLOL TARTRATE 25 MG TAB PO SCH (21:59)
[2023-09-13] MEDS: TAMSULOSIN 0.4 MG CAP.ER.24H PO SCH (21:59)
[2023-09-14] MEDS: ATORVASTATIN 20 MG TAB PO SCH (08:53)
[2023-09-14] MEDS: lisinopriL 5 MG TAB PO SCH (08:53)
[2023-09-14 13:34] VITALS: BP 114/53; PULSE 80; RESP 18; TEMP 97.4
--- NOTE | 2023-09-14 14:46 | P.DS ---
Providers Attending physician: Deacon Rosa [facility]: This is an 83-year-old male with history of BPH, underwent a transurethral resection of the prostate on September [address] Rosa. Please see op note dated September 12 for surgery details. Patient was admitted to the hospital postoperatively and was started on CBI. He did well in the postoperative period. He was discharged home on postop day #1 with a Brizuela catheter. At time of discharge he was tolerating a diet, ambulating, pain was controlled Plan - Discharge Summary Discharge Rx Participant: No New Discharge Prescriptions: New Cephalexin [Keflex] 500 mg PO Q12HR #10 cap No Action Aspirin 81 mg PO DAILY Atorvastatin [Lipitor] 20 mg PO DAILY amLODIPine [Norvasc] 5 mg PO HS Vit D (Unk) 1 tab PO DAILY Fish Oil(Unk) 1 tab PO DAILY lisinopriL [Zestril] 5 mg PO QAM Metoprolol Tartrate [Lopressor] 25 mg PO BID Mv-Min/Folic/K1/Lycopen/Lutein [Centrum Silver Men Tablet] 1 each PO DAILY Tamsulosin [Flomax] 0.4 mg PO HS Discharge Medication List Aspirin 81 mg PO DAILY 12/11/16 [History] Atorvastatin [Lipitor] 20 mg PO DAILY 04/26/17 [History] Metoprolol Tartrate [Lopressor] 25 mg PO BID 12/13/22 [History] Mv-Min/Folic/K1/Lycopen/Lutein [Centrum Silver Men Tablet] 1 each PO DAILY 12/13/22 [History] amLODIPine [Norvasc] 5 mg PO HS 12/13/22 [History] lisinopriL [Zestril] 5 mg PO QAM 12/13/22 [History] Fish Oil(Unk) 1 tab PO DAILY 06/25/23 [History] Vit D (Unk) 1 tab PO DAILY 06/25/23 [History] Tamsulosin [Flomax] 0.4 mg PO HS 09/11/23 [History] Cephalexin [Keflex] 500 mg PO Q12HR #10 cap 09/14/23 [Rx] Follow up Appointment(s)/Referral(s): Deacon Rosa MD [STAFF PHYSICIAN] - 09/18/23 8:50 am Activity/Diet/Wound Care/Special Instructions: Increase fluid intake You may see some blood in the urine You can discontinue the Flomax
== END 2023-09-14 16:28 ==
LOC: OR 07:44 → 4SSUR 13:20 → OR 09-14 16:28
PROVIDERS: ATTEND Urology
DX: N41.1 Chronic prostatitis (principal); N40.1 Benign prostatic hyperplasia with lower urinary tract symptoms; N13.8 Other obstructive and reflux uropathy; N28.1 Cyst of kidney, acquired; N21.0 Calculus in bladder; K21.9 Gastro-esophageal reflux disease without esophagitis; E78.5 Hyperlipidemia, unspecified; M19.90 Unspecified osteoarthritis, unspecified site; Z87.442 Personal history of urinary calculi; Z90.49 Acquired absence of other specified parts of digestive tract; Z95.5 Presence of coronary angioplasty implant and graft; Z87.891 Personal history of nicotine dependence; Z79.82 Long term (current) use of aspirin; Z79.899 Other long term (current) drug therapy
CPT/HCPCS: 52601; 88305; J2250; J0330; J1100; J2710; J0690; J2405; J2001; J3010; J2704

== ENCOUNTER → 2023-12-24 | Outpatient (CLI) | payer MEDICARE ==
[2023-12-24 15:40] LABS: ALT 23 U/L (10-49); AST 23 U/L (14-35); Chol/HDL Ratio 2.08 Ratio; LDL Cholesterol,Calculated 63.8 mg/dL (0.0-131.0); VLDL Calculation 16.66 mg/dL (5.00-40.00)
== END | disposition home or self-care (01) ==
LOC: LABWHC1 07:53
PROVIDERS: ATTEND Internal Medicine Interventional Cardiology
DX: E78.2 Mixed hyperlipidemia (principal)
CPT/HCPCS: 36415; 80061; 84450; 84460

== ENCOUNTER → 2024-07-01 | Outpatient (CLI) | payer MEDICARE ==
[2024-07-01 10:53] LABS: ALT 18 U/L (10-49); AST 22 U/L (14-35); Albumin 4.1 g/dL (3.8-4.9); Albumin/Globulin Ratio 2.16 Ratio (1.60-3.17); Alkaline Phosphatase 66 U/L (41-126); BUN/Creat Ratio 29.29 Ratio (12.00-20.00); Blood Urea Nitrogen 20.5 mg/dL (9.0-27.0); Calcium 9.2 mg/dL (8.7-10.3); Carbon Dioxide 27.3 mmol/L (21.6-31.8); Chloride 106 mmol/L (96-109); Chol/HDL Ratio 2.22 Ratio; Globulin 1.9 g/dL (1.6-3.3); Glucose 111 mg/dL (70-110); LDL Cholesterol,Calculated 69.5 mg/dL (0.0-131.0); Potassium 4.2 mmol/L (3.5-5.5); Sodium 141 mmol/L (135-145); Total Bilirubin 0.4 mg/dL (0.3-1.2)
== END | disposition home or self-care (01) ==
LOC: LABWHC1 07:29
PROVIDERS: ATTEND Internal Medicine Interventional Cardiology
DX: I10 Essential (primary) hypertension (principal); E78.2 Mixed hyperlipidemia
CPT/HCPCS: 36415; 80053; 80061

== ENCOUNTER → 2024-07-01 | Outpatient (CLI) | payer MEDICARE ==
[2024-07-01 08:38] LABS: African American GFR (CKD) >90 (>60 ml/min/1.73 sqM); Blood Urea Nitrogen 22 mg/dL (9-20); Non-African American GFR(CKD) 87 (>60 ml/min/1.73 sqM)
--- NOTE | 2024-07-01 10:40 | CT ---
EXAMINATION TYPE: CT urogram wo/w con DATE OF EXAM: 07/01/2024 COMPARISON: 02/16/2023 HISTORY: micro hematuria/ prostate issues/prostate surgery/ bladder stone surgery CT DLP: 3284 mGycm Automated exposure control for dose reduction was used. CONTRAST: Performed without and with IV Contrast, patient injected with 100ml mL of Isovue 370. FINDINGS: SYSTEM: There is no hydronephrosis or nephrolithiasis. Bilateral nonspecific perinephric stranding can be ass ociated with chronic medical renal disease or infection. Right kidney: There are parapelvic renal cysts. There are 2 hypodense lesions involving the upper robbin e of the right kidney the smallest is too small to characterize. The larger measures 15 Hounsfield un its on postcontrast imaging and 2 cm. Measures 7 Hounsfield units on precontrast. Findings suggest th ere is no significant enhancement. Most likely in the basis of a Bosniak classification 1 or 2 benign cyst. Appears retrospectively stable in size compared to prior exam. The subcentimeter upper pole right renal cyst does contain an internal septation but appears stable f rom prior exam. Left kidney: No hydronephrosis or nephrolithiasis. Focal area of cortical loss involving the lower po le the left kidney likely sequela of prior infectious or inflammatory etiology. Ureters are segmentally demonstrated be of normal course and caliber. No filling defects are seen wit hin the visualized portion of the renal pelvis or ureters. Bladder distends normally and is partially filled with contrast. No wall thickening, calcification or filling defect. Prostate measures 5 cm in size but there is prominence of the prostatic urethra and prostatic calcifi cations. ABDOMEN AND PELVIS: Postcholecystectomy changes. Mild intrahepatic biliary ductal dilation. Small hiatal hernia. Spleen n ormal. Utilized portions of the liver homogeneous. Subsegmental consolidation along the anterior righ t lower lobe most likely related atelectasis. Nonspecific mild mesenteric haziness can be associated with chronic mild panniculitis. 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 Stable bilateral adrenal gland thickening greater on the left which may be associated with the adrena l hyperplasia No evidence of bowel obstruction. Diverticulosis of the colon. Thoracic aorta of normal caliber with atherosclerotic changes. No pathologic lymphadenopathy. Small fat-containing bilateral inguinal herni a. No inflammatory changes. Bilateral hip arthropathy. Multilevel degenerative changes of the spine w ith moderate compression deformity L1. IMPRESSION: 1. No evidence of hydronephrosis, nephrolithiasis or bladder calculus. 2. Stable appearing bilateral renal cysts likely representing combination of Bosniak 1 and Bosniak 2 classification cyst as discussed above. 3. Prostatomegaly. Dilation of the prostatic urethra incidentally noted. Correlate for outlet obstruc tion. Calcifications within the prostate appear to be outside the course of the prostatic urethra. Co rrelate clinically. 4. 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 5. Postcholecystectomy with stable appearing intra and extra hepatic biliary ductal dilation likely p ostsurgical. [facility], , 07/01/2024 10:38 AM
== END | disposition home or self-care (01) ==
LOC: RADCTMAIN 07:47
PROVIDERS: ATTEND Internal Medicine
DX: R31.29 Other microscopic hematuria (principal); N28.1 Cyst of kidney, acquired; N40.0 Benign prostatic hyperplasia without lower urinary tract symptoms; K83.8 Other specified diseases of biliary tract; M79.3 Panniculitis, unspecified
CPT/HCPCS: 82565; 84520; 74178; 36415; 74400; Q9967

== ENCOUNTER → 2024-08-05 | Outpatient (CLI) | payer MEDICARE ==
--- NOTE | 2024-08-05 14:45 | XR ---
EXAMINATION TYPE: XR ankle complete RT DATE OF EXAM: 08/05/2024 2:33 PM COMPARISON: None. CLINICAL INDICATION: Male, 83 years old with history of S82.891A, pain TECHNIQUE: Frontal, lateral and oblique images of the right ankle are obtained. FINDINGS: There is an acute slightly displaced spiral type fracture through the lateral malleolus. M edial and posterior malleoli are intact. There is asymmetric slight medial widening of the medial ank le mortise raising concern for possible ligamentous injury. There is [id number] diffuse subcuta neous edema with more moderate soft tissue swelling over the lateral malleolus noted. IMPRESSION: As above. [facility], , 08/05/2024 2:42 PM
== END | disposition home or self-care (01) ==
LOC: RADXRMAIN 14:16
PROVIDERS: ATTEND Internal Medicine
DX: S82.891A Other fracture of right lower leg, initial encounter for closed fracture (principal); S82.61XA Displaced fracture of lateral malleolus of right fibula, initial encounter for closed fracture; X58.XXXA Exposure to other specified factors, initial encounter